=== PATIENT | male | born 1950 | race Caucasian/White ===

== ENCOUNTER 2020-02-29 02:14 | Outpatient (CLI) | payer MEDICARE, SELFPAY ==
[2020-02-29 18:25] LABS: SARS-CoV-2 RNA PCR Negative
== END 2020-02-29 02:15 | disposition home or self-care (01) ==
LOC: ANHCOVIDDT 02:14
PROVIDERS: PCP Internal Medicine; Visit Provider Internal Medicine Gastroenterology
DX: Z01.812 Encounter for preprocedural laboratory examination (principal); Z20.828 Contact with and (suspected) exposure to other viral communicable diseases
CPT/HCPCS: 87635; C9803; U0003

== ENCOUNTER 2020-03-03 01:42 | Day surgery (SDC) | payer MEDICARE, SELFPAY ==
[2020-02-25 15:07] VITALS: BMI 31.6
[2020-03-03 07:16] LABS: Glucose Point of Care 117 (65-105)
[2020-03-03] MEDS: LACTATED RINGERS 1,000 ML 150 ML IV CONT (07:18)
[2020-03-03 07:25] VITALS: BP 149/95; PULSE 64; RESP 16; TEMP 36.8; O2SAT 99
--- NOTE | 2020-03-03 07:55 | P.PNAN_ITS ---
Anes - Initial Pre Proc Eval Procedure: Operation Date: 03/03/20 08:00 Proposed Procedures p Screening Colonoscopy - Ankush Nath MD Date/Time: 03/03/20 07:55 Surgeon: Ankush Nath MD Pre Op Diagnosis: hx of colon polyps Patient Data Age: 69 Gender: M Height: 5 ft 10 in Weight: 104.5 kg Last Vital Signs Temp 98.3 F 03/03/20 07:25 Pulse 64 03/03/20 07:25 Resp 16 03/03/20 07:25 BP 149/95 H 03/03/20 07:25 Pulse Ox 99 03/03/20 07:25 Allergies Allergy/AdvReac Type Severity Reaction Status Date / Time No Known Allergies Allergy Verified 03/03/20 07:20 Home Medications Medication Instructions Recorded Confirmed Type allopurinol 300 mg PO DAILY 03/03/20 03/03/20 History amlodipine 5 mg PO DAILY 03/03/20 03/03/20 History atorvastatin 40 mg PO DAILY 03/03/20 03/03/20 History glimepiride 4 mg PO DAILY 03/03/20 03/03/20 History losartan 100 mg PO DAILY 03/03/20 03/03/20 History metformin 500 mg PO DAILY 03/03/20 03/03/20 History metoprolol tartrate 12.5 mg PO BID 03/03/20 03/03/20 History pantoprazole 40 mg PO DAILY 03/03/20 03/03/20 History Laboratory Tests 03/03/20 07:13 POC Capillary Glucose 117 mg/dl H mg/dl (65-105) Patient hx anesthesia problems: none Family hx anesthesia problems: none [facility] Past Medical History Medical History (Updated 03/03/20 @ 07:52 by Hector Sanchez MD) CAD (coronary artery disease) Diabetes Hyperlipidemia Hypertension Surgical History Surgical History (Updated 03/03/20 @ 07:52 by Hector Sanchez MD) Stented coronary artery Family History Family History Mother Hypertension Family history of malignant neoplasm Father Family history of cardiovascular disease Sibling Family history of malignant neoplasm Social History Social History Smoking status: Former smoker Tobacco type: cigarettes Smoking end date: 05/16/79 Alcohol intake: never Substance use: never Substance use type: does not use Last use: 1979 Living arrangements: with family Spiritual care concerns: No Anes - Eval Final PreProcedure Day of Procedure 03/03/20 07:55 Patient weight: obese Heart: regular rate and rhythm Lungs: clear to auscultation Airway: Mallampati scale class III Neurological: alert and oriented Last oral intake: >/= 8 hours ASA classification: III Emergent: no Anesthetic plan: proceed Anesthesia type and monitoring: general GIVS and standard monitoring Informed Consent: The patient's anesthetic plan and its attendant risks and benefits were discussed with the patient/family/POA. Questions were solicited and answers provided to the satisfaction of the patient/family/POA.
--- NOTE | 2020-03-03 08:04 | WPDGICN ---
Assessment and Plan Assessment and plan (1) History of colon polyps: Code(s): Z86.010 - Personal history of colonic polyps Status: Acute Assessment and Plan: Patient reports a history of colon polyps elsewhere 10 years ago. Plan is for surveillance colonoscopy at this time. High-fiber diet advised. Further recommendations will be given after endoscopy. GI Consult Note Consult date/time: 03/03/20 08:04 HPI: Daron Soares is a 69 year old male Seen in evaluation at the request of Dr. Calixto Almanza. Patient presents for follow-up colonoscopy. Patient reports having had a colon polyp on previous exam more than 10 years ago. She has he states that his current weight appetite bowel movements are normal. Previously followed by Dr. Dodson. Patient denies any blood in his stools. He denies abdominal pain. His bowel habits are normal. Review of Systems Review of Systems: All systems reviewed & are unremarkable except as noted in HPI and below PMFSH Past Medical History Medical History (Updated 03/03/20 @ 08:06 by Ankush Nath MD) CAD (coronary artery disease) Diabetes Hyperlipidemia Hypertension Surgical History Surgical History (Updated 03/03/20 @ 07:52 by Hector Sanchez MD) Stented coronary artery Family History Family History Mother Hypertension Family history of malignant neoplasm Father Family history of cardiovascular disease Sibling Family history of malignant neoplasm Social History Social History Smoking status: Former smoker Tobacco type: cigarettes Smoking end date: 05/16/79 Alcohol intake: never Substance use: never Substance use type: does not use Last use: 1979 Living arrangements: with family Spiritual care concerns: No Meds Home Medications and Allergies Home Medications Medication Instructions Recorded Confirmed Type allopurinol 300 mg PO DAILY 03/03/20 03/03/20 History amlodipine 5 mg PO DAILY 03/03/20 03/03/20 History atorvastatin 40 mg PO DAILY 03/03/20 03/03/20 History glimepiride 4 mg PO DAILY 03/03/20 03/03/20 History losartan 100 mg PO DAILY 03/03/20 03/03/20 History metformin 500 mg PO DAILY 03/03/20 03/03/20 History metoprolol tartrate 12.5 mg PO BID 03/03/20 03/03/20 History pantoprazole 40 mg PO DAILY 03/03/20 03/03/20 History Allergies Allergy/AdvReac Type Severity Reaction Status Date / Time No Known Allergies Allergy Verified 03/03/20 07:20 Vital Signs Vital Signs - 24 hr 03/03/20 07:25 Temperature 98.3 F Pulse Rate 64 Respiratory Rate 16 Blood Pressure 149/95 H Pulse Oximetry 99 Exam Narrative: Exam Narrative: physical exam reveals patient to be alert. Vital signs stable. HEENT exam unremarkable. Patient is alert. Vital signs stable. Lungs are clear. Heart without murmur. Abdomen bowel sounds are present soft nontender with no organomegaly. Digital external rectal exam is normal.
[2020-03-03 08:37] VITALS: BP 112/64; PULSE 65; RESP 18; O2SAT 96
[2020-03-03 08:47] VITALS: BP 116/68; PULSE 63; RESP 18; O2SAT 96
[2020-03-03 08:57] VITALS: BP 123/78; PULSE 60; RESP 20; O2SAT 98
== END 2020-03-03 09:18 | disposition home or self-care (01) ==
PROVIDERS: PCP Internal Medicine; Visit Provider Internal Medicine Gastroenterology
PROC: 0DJD8ZZ Inspection of Lower Intestinal Tract, Via Natural or Artificial Opening Endoscopic (ICD-10-PCS; CPT 45378; principal; 2020-03-03 08:00)
DX: Z12.11 Encounter for screening for malignant neoplasm of colon (principal); D12.3 Benign neoplasm of transverse colon; D12.5 Benign neoplasm of sigmoid colon; K57.30 Diverticulosis of large intestine without perforation or abscess without bleeding; K64.8 Other hemorrhoids; I10 Essential (primary) hypertension; E11.9 Type 2 diabetes mellitus without complications; I25.10 Atherosclerotic heart disease of native coronary artery without angina pectoris; Z95.5 Presence of coronary angioplasty implant and graft; Z87.891 Personal history of nicotine dependence; Z79.84 Long term (current) use of oral hypoglycemic drugs; E66.9 Obesity, unspecified; Z68.33 Body mass index [BMI] 33.0-33.9, adult
CPT/HCPCS: 45385; 88305; J2704; J7120

== ENCOUNTER 2023-02-15 07:37 | Outpatient (CLI) | payer MEDICARE, SELFPAY ==
--- NOTE | ~2023-02-15 | CT_ITS ---
CT Scan of the Chest without Contrast: Clinical Indication: Lung cancer screening, personal history of nicotine dependence Technique: Contiguous sections were acquired throughout the chest without intravenous contrast. Dose reduction technique was used on this scan by utilizing automated exposure control and iterative recon struction technique. The dose-length product (DLP) was 178.25 mGy-cm. Findings: There is no evidence of any significant mediastinal, hilar or axillary lymphadenopathy. Coronary kirstin ry calcifications are present. There is no evidence of pleural or pericardial effusion. Calcified right upper lobe granuloma noted. No other pulmonary nodule seen. Images through the upper abdomen reveal probable micronodular contour of liver. Impression: Lung RADS 2: Benign appearance. 12 month follow-up screening CT advised. Reviewed, dictated and finalized at location . Impression: Lung RADS 2: Benign appearance. 12 month follow-up screening CT advised.
== END 2023-02-15 07:38 | disposition home or self-care (01) ==
PROVIDERS: PCP Family Medicine; Visit Provider Family Medicine
DX: Z12.2 Encounter for screening for malignant neoplasm of respiratory organs (principal); Z87.891 Personal history of nicotine dependence
CPT/HCPCS: 71271

== ENCOUNTER 2023-02-25 10:48 | Outpatient (CLI) | payer MEDICARE, SELFPAY ==
--- NOTE | ~2023-02-25 | US_ITS ---
Limited Abdominal Sonogram: Real-time sonographic imaging of the right upper quadrant was performed. Clinical History: Elevated liver enzymes Findings: The liver appears mildly echogenic, with no evidence of mass lesion or bile duct dilatatio n. Questionable minimally nodular contour of liver. Main portal vein demonstrates normal direction of flow. The gallbladder is absent, compatible with prior cholecystectomy. The common bile duct measure s 3 mm. The pancreas is obscured by bowel gas shadowing. Impression: Probable diffuse fatty infiltration of liver. Questionable minimal nodularity liver contour of the liver. Correlate for early cirrhotic change. Reviewed, dictated and finalized at location . Impression: Probable diffuse fatty infiltration of liver. Questionable minimal nodularity liver contour of the liver. Correlate for early cirrhotic change.
== END 2023-02-25 10:49 | disposition home or self-care (01) ==
PROVIDERS: PCP Family Medicine; Visit Provider Family Medicine
DX: R74.8 Abnormal levels of other serum enzymes (principal)
CPT/HCPCS: 76705

== ENCOUNTER 2023-04-11 08:26 | Outpatient (RCR) | payer MEDICARE, SELFPAY ==
--- NOTE | 2023-04-11 09:25 | PTOPEVDC ---
Assessment and note entered by Candy Velasquez, PT Thank you for referring Daron Soares to [facility].? An evaluation has been completed. No further treatment is needed. Evaluation Information Assessment Status Evaluation Diagnosis spondylosis w/out myelopathy or radiculopathy; cervical Subjective Information Pt reports 10 years ago neck started being bothersome especially on right side. Saw a doctor that taught him a stretch that fixes the issues. Came back 3 weeks ago and did the x-ray, shows arthritis, and hasn't had pain since. Pt reports only does the stretches when has the pain and this has worked but hasn't prophylacticly Used to hurt all the time in the morning with waking but is better. Usually only happens once or twice a month, this time was increasing to daily multiple times a day when went to the doctor and now is fine. Reported Pain Level Pain Score 0: Self Report Assessment PT Clinical Summary Pt presents with history of relapsing intermittent pain in right side of his neck and shoulder area. Pt currently has no pain, reports has a stretch that a doctor gave him previously that works to resolve the pain. While evaluation shows some mild to moderate deficits in cervical ROM and posture, pt also has no pain currently, tenderness to palpation, or overt abnormalities of soft tissue. Most significant deficit noted in shoulder ROM however currently is painless and functional for patient. Patient was educated in findings of evaluation, encouraged to perform his stretches daily as preventative measures for flare ups, and educated on return to therapy if pain is not able to be managed independently in the future. Thus patient will not be seen for therapy at this time due to patient request and currently being baseline for the last three weeks. Plan of Care PT Services Indicated No
== END 2023-04-11 09:40 | disposition home or self-care (01) ==
LOC: ANHHIPT 08:26
PROVIDERS: PCP Family Medicine; Visit Provider Family Medicine
DX: M47.812 Spondylosis without myelopathy or radiculopathy, cervical region (principal)
CPT/HCPCS: 97161

== ENCOUNTER 2023-06-04 16:54 | Inpatient (IN) | payer MEDICARE, SELFPAY ==
--- NOTE | ~2023-06-04 | CT_ITS ---
EXAMINATION: CT abdomen pelvis wo/w con DATE: 06/04/2023 22:14 INDICATION: Recurrent urinary tract infections. Concern for fistula. TECHNIQUE: Computed tomography (CT) of the abdomen and pelvis was performed with 100 CC Omnipaque 350 intravenous contrast. Automated exposure control and iterative reconstruction technique were employe d. Exam dose: 5424.87 mGy-cm total exam DLP. COMPARISON: 02/25/2023 Limited abdominal ultrasound examination FINDINGS: No consolidation at the lung bases. Normal heart size. Prominent coronary artery calcificat ions. No pericardial or pleural effusion. There is minimal ascites. Small sliding hiatal hernia. There is surface nodularity of the liver consistent with cirrhosis and mild splenomegaly; spleen bita ures approximately 14.9 cm maximum vertical dimension. Status post cholecystectomy. No bile duct or pancreatic duct dilatation. No pancreatic mass lesion or calcification. Normal morphology of the adrenal glands. Approximately 1 cm posterior upper pole left renal exophytic cyst. No urinary tract calculus or hydro ureteronephrosis. There is prominent thickening of the urinary bladder wall. There is gas within the bladder lumen; dif ferential diagnosis includes iatrogenic air from instrumentation such as Godfrey catheter placement ramiro hayes fistula with the colon due to diverticulitis or possibly secondary to bladder mass. There is an approximately 2 cm soft tissue mass in the anterior aspect of the urinary bladder, suspic ious for urothelial malignancy.. Moderate prostatomegaly. Small bilateral fat-containing inguinal hernias. Normal appendix. There is diverticulosis of left and right colon, the diverticula particularly numerous in the sigmoid and descending colon. There is mild fat stranding in the sigmoid colon area; mild diverticulitis is not excluded. Given the presence of air in the urinary bladder, fistula between the sigmoid colon and urinary bladder is not excluded. Small fat-containing umbilical hernia. Diffuse idiopathic skeletal hyperostosis of the thoracic spine. IMPRESSION: Air within the bladder lumen which may be due to instrumentation versus fistula with the sigmoid colon due to either sigmoid diverticulitis or bladder neoplasm Diverticulosis of the colon; mild diverticulitis is not excluded in the sigmoid area Cirrhosis, mild splenomegaly, minimal ascites Small sliding hiatal hernia Normal appendix 1 cm left renal cyst Reviewed, dictated and finalized at [facility]. Reviewed, dictated and finalized at location [facility]. ON MANIFEST CLERK IMPRESSION: Air within the bladder lumen which may be due to instrumentation v ersus fistula with the sigmoid colon due to either sigmoid diverticulitis or bl adder neoplasm Diverticulosis of the colon; mild diverticulitis is not excluded in the sigmoid area Cirrhosis, mild splenomegaly, minimal ascites Small sliding hiatal hernia Normal appendix 1 cm left renal cyst
--- NOTE | ~2023-06-04 | US_ITS ---
EXAMINATION: US abdomen limited DATE: 06/06/2023 08:34 INDICATION: Elevated liver enzymes with concern for cirrhosis TECHNIQUE: Multiple grayscale and Doppler ultrasound images of the abdomen were obtained. COMPARISON: CT dated 06/04/2023 and ultrasound dated 02/25/2023 FINDINGS: The pancreatic head and body are normal in appearance. The pancreatic tail is not visualized. Liver has normal echogenicity with subtle liver surface nodularity consistent with cirrhosis. No liver lesi on identified. No intrahepatic biliary duct dilation suspected. Portal venous flow was seen in the he patopetal, normal direction and has normal Doppler waveform. Gallbladder is surgically absent. The ga llbladder measures 5 mm in maximal diameter which is normal. The visualized inferior vena cava is nor mal. Visualized portion of the right kidney demonstrates normal contour and echogenicity with no hydr onephrosis. There is a minimal amount of perihepatic ascites. IMPRESSION: 1. Cirrhosis with minimal amount of perihepatic ascites. 2. Status post cholecystectomy. Reviewed, dictated and finalized at location A. ETRICS NURSE
[2023-06-04 17:01] VITALS: BP 171/94; PULSE 88; RESP 19; TEMP 36.1; O2SAT 100
[2023-06-04 18:22] LABS: Appearance Urine Cloudy (Clear); Bacteria Urine 1+ /hpf; Bilirubin Urine 1+ (Negative); Blood Urine 2+ (Negative); Color Urine Dark Yellow (Yellow); Glucose Urine UA Negative (Negative); Ketones Urine Trace mg/dL (Negative); Leukocyte Esterase Ur 2+ LEU/UL (Negative); Need Manual Microscopic Reviewed; Nitrate Urine Positive (Negative); Protein Urine 2+ mg/dL (Negative); Specific Grav Ur 1.025 (1.001-1.035); Squamous Epithelial Cell Urine None seen /hpf (Few); WBC Urine >100 /hpf
[2023-06-04 18:23] LABS: Add Urine Microscopic? YES
[2023-06-04 19:19] LABS: Glucose Point of Care 129 mg/dl (65-105)
--- NOTE | 2023-06-04 20:07 | ED.MALEGU ---
HPI - Male Genitourinary General Chief complaint: Urogenital-Male <Krista Sanches MD - Last Filed: 06/05/23 11:07> Stated complaint: urinary frequency <Krista Sanches MD - Last Filed: 06/05/23 11:07> Time Seen by Provider: 06/04/23 20:07 <Krista Sanches MD - Last Filed: 06/05/23 11:07> History of Present Illness HPI Narrative: Patient is a 72 year old male with history of recurrent urinary tract infections, follows with Dr. Carmona, here with dysuria. Patient notes he had dysuria and increased urinary frequency for the last 3-4 days. Patient notes he feels the need to void constantly, urinating several times an hour, only urinating about a shot glass worth of urine at a time. He notes some burning pain at the tip of his penis with urination. He went to see Dr. Carmona a few days ago, had a urinalysis performed and was diagnosed with a UTI, started on ciprofloxacin. He has taken about 3 days worth of this antibiotic without any improvement of symptoms. He has had night sweats the last 2 nights, no fever, abdominal pain, flank pain, cough, congestion. Dr. Carmona had ordered an outpatient CT with and without contrast which is currently scheduled for Tuesday however he is worried that he cannot make it until them. He had an episode of diverticulitis about 8 months ago, notes that he has had some gas when he urinates for several months, Dr. Carmona is concerned he may have a colovesicular fistula. <Krista Sanches MD - Last Filed: 06/05/23 11:07> Related Data Home medications: Home Medications Medication Instructions Recorded Confirmed amlodipine 5 mg tablet 5 mg PO DAILY 03/03/20 06/05/23 atorvastatin 40 mg tablet 40 mg PO DAILY 03/03/20 06/05/23 losartan 100 mg tablet 100 mg PO DAILY 03/03/20 06/05/23 metoprolol tartrate 25 mg tablet 12.5 mg PO BID 03/03/20 06/05/23 aspirin 81 mg tablet,delayed 81 mg PO DAILY 03/11/22 06/05/23 release (Adult Low Dose Aspirin) nitroglycerin 0.4 mg sublingual 0.4 mg sublingual Q5M PRN Chest 10/27/22 01/21/24 tablet Pain allopurinol 100 mg tablet 100 mg PO DAILY 06/05/23 06/05/23 pantoprazole 40 mg tablet,delayed 40 mg PO DAILY 06/05/23 06/05/23 release sitagliptin phosphate 100 mg 50 mg DAILY 06/05/23 06/05/23 tablet (Januvia) tamsulosin 0.4 mg capsule 0.4 mg DAILY 06/05/23 06/05/23 <Krista Sanches MD - Last Filed: 06/05/23 11:07> Allergies/Adverse reactions: Allergies Allergy/AdvReac Type Severity Reaction Status Date / Time dapagliflozin [From Farxiga] AdvReac Intermediate increased Verified 06/04/23 20:36 urination semaglutide [From Ozempic] AdvReac Gastrointestinal Verified 06/04/23 20:36 Upset <Krista Sanches MD - Last Filed: 06/05/23 11:07> Review of Systems Review of Systems: All systems reviewed & are unremarkable except as noted in HPI and below <Krista Sanches MD - Last Filed: 06/05/23 11:07> PMFSH Past Medical History Medical History: Medical History (Updated 06/05/23 @ 11:06 by Krista Sanches MD) Acute medial meniscus tear of right knee CAD (coronary artery disease) Vfib with cardiac arrest at time of [place], PCI RCA May 2021 Cervical arthritis Chronic kidney disease Chronic pain of right knee Diabetes Elevated liver enzymes Encounter for screening for malignant neoplasm of prostate Hyperlipidemia Hypertension Penile anomalies Prostatitis Rotator cuff arthropathy Tear of right rotator cuff Trigger finger, right middle finger Trigger thumb, left thumb Trigger thumb, right thumb Type 2 diabetes mellitus with complication UTI (urinary tract infection) <Krista Sanches MD - Last Filed: 06/05/23 11:07> Surgical History Surgical History: Surgical History (Reviewed 03/24/23 @ 10:[address] Castaneda [facility]) H/O colonoscopy 02/2020 repeat 5 years History of heart artery stent Hx of cholecystectomy Stented coronary artery <Krista Sanches MD - Last Filed: 06/05/23 11:07> Family History Family History: Family History
[2023-06-04 20:46] LABS: Basophils Percent Auto 0.5 % (0.2-1.2); Eosinophils Percent Auto 0.5 % (0-4.4); Hemoglobin 11.1 g/dL (14.0-18.0); Immature Granulocyte Absolute 0.02 K/mm3 (0.00-0.031); Immature Granulocyte Percent A 0.3 % (0-0.5); Lymphocytes Absolute Auto 0.36 K/mm3 (0.9-3.2); Lymphocytes Percent Auto 5.6 % (18.3-44.2); Mean Corpuscular HGB Conc 30.8 g/dl (32-36); Mean Corpuscular Hemoglobin 26.2 pg (26-34); Mean Corpuscular Volume 84.9 fl (80-100); Mean Platelet Volume 10.2 fl (7.4-10.4); Monocytes Absolute Auto 0.7 K/mm3 (0.1-0.6); Monocytes Percent Auto 10.9 % (2.6-8.5); Neutrophils Absolute Auto 5.3 K/mm3 (1.3-6.7); Neutrophils Percent Auto 82.2 % (45.5-73.1); Platelet Count Result 168 k/mm3 (150-375); Red Blood Count 4.24 M/mm3 (4.6-6.20); Red Cell Distribution Width 16.2 % (11.5-14.5); White Blood Count 6.4 K/mm3 (4.5-10.0)
[2023-06-04 21:03] LABS: Alanine Aminotransferase 43 U/L (6-50); Albumin Level 3.7 g/dL (3.5-5.1); Alkaline Phosphatase 482 U/L (38-126); Anion Gap 8 mmol/L (8-16); Aspartate Amino Transferase 84 U/L (17-59); Bilirubin,Total 1.5 mg/dL (0.2-1.3); Blood Urea Nitrogen 27 mg/dL (9-20); Calcium 8.6 mg/dL (8.4-10.2); Carbon Dioxide 22 mmol/L (22-30); Chloride 105 mmol/L (98-107); Estimated CRCL calculation 43 ml/min; Estimated Glomerular Filt Rate 43; Glucose 135 mg/dL (65-110); Sodium 135 mmol/L (137-145)
--- NOTE | 2023-06-04 22:29 | PC.NURSE ---
2228-BEDSIDE BLOOD GLUCOSE 134
[2023-06-04 22:30] LABS: Glucose Point of Care 134 mg/dl (65-105)
[2023-06-04 23:00] VITALS: PULSE 88; RESP 20; O2SAT 97
[2023-06-05] VITALS (8 sets, daily range): BP systolic 142–163; BP diastolic 72–84; PULSE 78–97; RESP 16–20; TEMP 36.6–36.9; O2SAT 97–100; BMI 29.5
[2023-06-05] MEDS: metroNIDAZOLE 500 MG/ISO 100ML 500 MG/100 ML BAG 100 MG IVPB ×3 (01:44→17:58)
[2023-06-05] MEDS: SODIUM CHLORIDE 0.9% IV 1,000 ML 125 ML IV CONT ×3 (03:21→20:41)
--- NOTE | 2023-06-05 03:52 | ADMGEN ---
This patient, Daron Soares, was admitted to Medical Room 343-01. Patient/family oriented to hospital policies and general routines including ID bracelet, bed and alarms, visiting hours, pain management, procedures, bathroom and other care routines, personal items, smoking policy, room service/diet, and visiting hours. Information on how to activate the Rapid Response Team has been discussed. Patient/Family are encouraged to report perceived risks to care and to ask questions if they do not understand what they are told or what they should do.
[2023-06-05] MEDS: PANTOPRAZOLE 40 MG TABLET PO (09:31)
[2023-06-05] MEDS: METOPROLOL TARTRATE 12.5 MG TABLET PO ×2 (09:31→20:35)
[2023-06-05 09:32] LABS: Glucose Point of Care 157 mg/dl (65-105)
[2023-06-05] MEDS: ASPIRIN 81 MG ENTERIC TABLET PO (09:32)
[2023-06-05] MEDS: LOSARTAN POTASSIUM 100 MG TABLET PO (09:32)
--- NOTE | 2023-06-05 11:50 | WPDURCON ---
Assessment and Plan Assessment and plan (1) Diverticulitis: Code(s): K57.92 - Diverticulitis of intestine, part unspecified, without perforation or abscess without bleeding Status: Acute Assessment and Plan: Most likely cause of Colovesicular fistula GI and surgical evaluation and consult requested. (2) Urinary tract infection: Qualifiers: Hematuria presence: with hematuria Urinary tract infection type: acute cystitis Qualified Code(s): N30.01 - Acute cystitis with hematuria Code(s): N39.0 - Urinary tract infection, site not specified Status: Acute Assessment and Plan: cult pending, current and from office last week Cefriaxone and Flagyl (3) Urinary frequency: Code(s): R35.0 - Frequency of micturition Status: Acute Assessment and Plan: ulloa if retention symptoms (4) Dysuria: Code(s): R30.0 - Dysuria Status: Acute Assessment and Plan: from UTI and treating (5) BPH (benign prostatic hyperplasia): Code(s): N40.0 - Benign prostatic hyperplasia without lower urinary tract symptoms Status: Acute Assessment and Plan: start tamsulosin PVR low in office (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 Worsening dysuria and frequncy and admitted from ER with signs of colovesicular fistula. His CT with diverticulosis and thickened bladder. No obvious tumor. Past episodes of diverticulitis. Cipro did not help symptoms. Thinks last colonoscopy 2-3 years ago. He has not had cystoscopy. Reports PSA normal in past. Large prostate on CT. PVR in office low on bladder scan. No current prostate medication. Review of Systems Gastrointestinal: Comments: no recent pain some loose stools no blood in stool PMFSH Past Medical History Medical History (Updated 06/05/23 @ 12:09 by Jeremi Floyd MD) Acute medial meniscus tear of right knee CAD (coronary artery disease) Vfib with cardiac arrest at time of [place], PCI RCA May 2021 Cervical arthritis Chronic kidney disease Chronic pain of right knee Diabetes Elevated liver enzymes Encounter for screening for malignant neoplasm of prostate Hyperlipidemia (~06/05/23) Hypertension Penile anomalies Prostatitis Rotator cuff arthropathy Tear of right rotator cuff Trigger finger, right middle finger Trigger thumb, left thumb Trigger thumb, right thumb Type 2 diabetes mellitus with complication UTI (urinary tract infection) Surgical History Surgical History H/O colonoscopy 02/2020 repeat 5 years History of heart artery stent Hx of cholecystectomy Stented coronary artery Family History Family History Mother Hypertension Family history of malignant neoplasm Father Family history of cardiovascular disease Sibling Family history of malignant neoplasm Social History Social History Smoking status: Former smoker Alcohol intake: never Substance use: never Substance use type: does not use Last use: 1980 Do You Feel Safe in your Home?: Yes Lack of Transportation: No Lack of Food: Never True Current Housing: I Have Housing Concerned About Future Housing: No Difficulty Paying Gas/Electric Bills: No Difficulty Paying for Meds: No Currently Unemployed: No Education: High School Diploma/GED Difficulty w/ Childcare or
[2023-06-05 12:32] LABS: Glucose Point of Care 185 mg/dl (65-105)
--- NOTE | 2023-06-05 12:45 | PM.IMHP ---
H&P: HPI History of Present Illness Date/Time: 06/05/23 12:45 Chief Complaint: Urinary frequency, dysuria Narrative: This is a 72-year-old male with a past medical history of diabetes, hypertension, hyperlipidemia, and VT with stent placement that presented to the ED on 06/04/2023 due to worsening urinary frequency and dysuria. Patient had recently been seen in Urology office due to the symptoms and was put on ciprofloxacin. When he did not improve on this antibiotic and was evaluated in the ED due to this. He had a outpatient CT planned for this coming Tuesday due to his symptoms. CT abdomen pelvis done in the ED showing bladder wall thickening, poss facial of the colon due to diverticulitis versus bladder mass. Patient was admitted neurology was consulted. UA was suspicious for infection he was started on Rocephin. Flagyl was added on to antibiotic therapy due to imaging consistent with diverticulitis. Patient denied diarrhea And abdominal pain. He did mention a fever yesterday with temperature of 101.8?. He denied any hematuria, melena or hematochezia. [facility] Past Medical History Medical History Acute medial meniscus tear of right knee CAD (coronary artery disease) Vfib with cardiac arrest at time of [place], PCI RCA May 2021 Cervical arthritis Chronic kidney disease Chronic pain of right knee Diabetes Elevated liver enzymes Encounter for screening for malignant neoplasm of prostate Hyperlipidemia (~06/05/23) Hypertension Penile anomalies Prostatitis Rotator cuff arthropathy Tear of right rotator cuff Trigger finger, right middle finger Trigger thumb, left thumb Trigger thumb, right thumb Type 2 diabetes mellitus with complication UTI (urinary tract infection) Surgical History Surgical History H/O colonoscopy 02/2020 repeat 5 years History of heart artery stent Hx of cholecystectomy Stented coronary artery Family History Family History Mother Hypertension Family history of malignant neoplasm Father Family history of cardiovascular disease Sibling Family history of malignant neoplasm Social History Social History Smoking status: Former smoker Alcohol intake: never Substance use: never Substance use type: does not use Last use: 1980 Do You Feel Safe in your Home?: Yes Lack of Transportation: No Lack of Food: Never True Current Housing: I Have Housing Concerned About Future Housing: No Difficulty Paying Gas/Electric Bills: No Difficulty Paying for Meds: No Currently Unemployed: No Education: High School Diploma/GED Difficulty w/ Childcare or Family Care: No Living arrangements: with family Occupation/Education: retired Gender identity (if verbalized by the patient): Male Sexual Orientation (if Verbalized by the Patient): Straight or Heterosexual Spiritual care concerns: No Meds Home Medications and Allergies Home Medications Medication Instructions Recorded Confirmed Type amlodipine 5 mg tablet 5 mg PO DAILY 03/03/20 06/05/23 History atorvastatin 40 mg tablet 40 mg PO DAILY 03/03/20 06/05/23 History losartan 100 mg tablet 100 mg PO DAILY 03/03/20 06/05/23 History metoprolol tartrate 25 mg tablet 12.5 mg PO BID 03/03/20 06/05/23 History aspirin 81 mg tablet,delayed 81 mg PO DAILY 03/11/22 06/05/23 History release (Adult Low Dose Aspirin) nitroglycerin 0.4 mg sublingual 0.4 mg sublingual Q5M PRN Chest 03/11/22 06/05/23 History tablet Pain cyclobenzaprine 5 mg tablet 5 mg PO TID PRN muscle spasm #30 07/23/22 06/05/23 Rx tabs tramadol 50 mg tablet 50 mg PO Q6H PRN pain #30 tabs 07/23/22 06/05/23 Rx ciprofloxacin HCl 500 mg tablet 500 mg PO Q12H #20 tabs 03/24/23 06/05/23 Rx metformin 500 mg 24 hr 1,000 mg PO BID 90 days #360 tab
--- NOTE | 2023-06-05 17:06 | WPDCN ---
Assessment and Plan Assessment and plan (1) Cirrhosis: Code(s): K74.60 - Unspecified cirrhosis of liver Status: Acute Assessment and Plan: Patient may have some mild cirrhosis due to nonalcoholic steatohepatitis. Liver enzymes are only mildly elevated and there is some mild changes of scarring of the liver CT scan. Will need to assess the degree of liver disease before recommending any specific surgical management for his colovesical fistula. 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 His history of having sigmoid diverticulitis in the past and CT findings are very suggestive of having a colovesical fistula as a reason for his chronic UTIs. Urology has seen him and I suspect Dr. Carmona will likely perform his cystoscopy on this patient during this admission. Either a cystogram or lower GI contrast study would likely show the colovesical fistula. We will see with Dr. Lamar case is going to do diagnostically and if urology workup does not show the colovesical fistula that I would recommend getting a lower GI imaging study. GI consultation has been ordered as well by the urologist and so patient may also end up getting a colonoscopy depending on GI recommendations. For now he does not need any emergent surgical management. (3) Diverticulitis: Code(s): K57.92 - Diverticulitis of intestine, part unspecified, without perforation or abscess without bleeding Status: Acute Assessment and Plan: Likely causing a Colovesical fistula dome of the bladder. Treatment would entail takedown of the colovesical fistula and sigmoid resection and hopefully primary anastomosis. HPI Data of Consult Date/Time: 06/05/23 17:06 Requesting Physician: Mar Steele DO Primary Care Provider: Vj Mendez MD Consult Narrative Reason for consult: Colovesical fistula Narrative: Daron Soares is a 72 year old male who was admitted to the hospital with symptoms of severe recurrent UTI. Complains of burning with urination and urinary frequency. He has a large prostate and was seen by Dr. Carmona in the office last week. He was diagnosed with a UTI placed on Cipro. The plan was to perform a cystoscopy this coming week but the patient was having too much pain and urinary frequency and presented to the emergency room. He was seen by Dr. Floyd from the Urology Service and both GI and General surgery was consulted because of the likelihood that the patient has a colovesical fistula. The patient has a history of acute sigmoid diverticulitis. A few years ago had his gallbladder removed laparoscopically at another hospital and in the postoperative period he developed acute sigmoid diverticulitis. He did not need surgical intervention at that time. He had a colonoscopy performed about 2 years ago showed no polyps or masses. His CT scan today shows pretty severe diverticulosis of the sigmoid colon and 1 images sigmoid colon approximated to the dome of the bladder with thickening the area and there is air within the bladder. Patient had a previous sigmoid colon surgery in the past. Images on CT scan the liver showed there to be some irregularity to the surface of the liver suggestive of some cirrhotic changes. Patient has had some mildly chronically elevated LFTs in the past but has never had the symptoms from possible cirrhosis and has never been referred to see a apartment leasing consultant. Review of Systems Review of Systems: The remainder of the review of systems to include constitutional, HEENT, cardiovascular, respiratory, GI, , integumentary, musculoskeletal, endocrine, immunologic, hematologic, psychiatric, and neurologic are all negative except for which is mentioned above in the HPI. [facility] Past Medical History Medical History (Reviewed 06/05/23 @ 17:11 by Rommel Gutierrez
[2023-06-05 17:19] LABS: Glucose Point of Care 176 mg/dl (65-105)
[2023-06-05] MEDS: amLODIPine BESYLATE 5 MG TABLET PO (20:36)
[2023-06-05] MEDS: TAMSULOSIN HCL 0.4 MG CAPSULE BY MOUTH (20:36)
[2023-06-05] MEDS: ATORVASTATIN 40 MG TABLET PO (20:36)
[2023-06-05 20:56] LABS: Glucose Point of Care 173 mg/dl (65-105)
[2023-06-06] VITALS (9 sets, daily range): BP systolic 136–159; BP diastolic 67–91; PULSE 75–98; RESP 12–20; TEMP 36.5–37.2; O2SAT 97–100
[2023-06-06] MEDS: metroNIDAZOLE 500 MG/ISO 100ML 500 MG/100 ML BAG 100 MG IVPB ×3 (01:48→17:22)
[2023-06-06] MEDS: SODIUM CHLORIDE 0.9% IV 1,000 ML 125 ML IV CONT (01:49)
[2023-06-06] MEDS: TAMSULOSIN HCL 0.4 MG CAPSULE PO (08:40)
[2023-06-06] MEDS: METOPROLOL TARTRATE 12.5 MG TABLET PO ×2 (08:40→21:21)
[2023-06-06] MEDS: LOSARTAN POTASSIUM 100 MG TABLET PO (08:40)
[2023-06-06] MEDS: PANTOPRAZOLE 40 MG TABLET PO (08:40)
[2023-06-06] MEDS: ASPIRIN 81 MG ENTERIC TABLET PO (08:40)
--- NOTE | 2023-06-06 09:03 | WPDUROPN2 ---
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 Has been seen by General surgery. I will discuss with Dr. Forbes timing and utility of diagnostic cystoscopy Continue antibiotics for urinary tract infection Subjective Subjective Date/Time Seen: 06/06/23 09:03 Interval history: His frequency is improved with antibiotics. Denies pneumaturia today. CT scan reviewed Exam Narrative: No acute distress Alert orient x3 Objective Data Vital Signs Vital Signs: Vital Signs - 24 hr 06/05/23 09:31 06/05/23 13:19 06/05/23 14:00 Temperature 97.9 F Pulse Rate 85 82 78 Respiratory Rate 20 16 Blood Pressure 149/77 H Pulse Oximetry 99 100 Oxygen Delivery Room Air 06/05/23 12:43 06/05/23 09:31 06/05/23 20:20 Temperature 98.5 F Pulse Rate 85 83 Respiratory Rate 18 Blood Pressure 163/82 H 163/84 H Pulse Oximetry 98 Oxygen Delivery Room Air 06/05/23 20:35 06/06/23 04:32 06/06/23 08:40 Temperature 98.6 F Pulse Rate 86 83 85 Respiratory Rate 16 Blood Pressure 147/78 H Pulse Oximetry 100 Oxygen Delivery Intake/Output Intake/Output: Intake & Output 06/03/23 06/04/23 06/05/23 06/06/23 23:59 23:59 23:59 23:59 Intake Total 50 3150 1450 Balance 50 3150 1450 Meds/Results Medications: Active Medications Generic Name Dose Route Start Last Admin Trade Name Freq PRN Reason Stop Dose Admin Acetaminophen 650 mg 06/05/23 01:27 Acetaminophen 325 Mg Tablet PO Q4H PRN Mild Pain (1-3) or Fever Amlodipine Besylate 5 mg 06/05/23 21:00 06/05/23 20:36 Amlodipine Besylate 5 Mg Tablet PO 5 mg HS BRYCE Administration Aspirin 81 mg 06/05/23 09:00 06/06/23 08:40 Aspirin 81 Mg Enteric Tablet PO 81 mg DAILY BRYCE Administration Atorvastatin Calcium 40 mg 06/05/23 21:00 06/05/23 20:36 Atorvastatin 40 Mg Tablet PO 40 mg HS BRYCE Administration Cyclobenzaprine HCl 5 mg 06/05/23 08:17 Cyclobenzaprine Hcl 5 Mg Tablet PO TID PRN muscle spasm Dextrose 12.5 gm 06/05/23 08:18 Dextrose 50% 25 Gm/50 Ml Syringe IV PUSH PRN PRN Hypoglycemia Protocol Glucagon 1 mg 06/05/23 08:18 Glucagon For Inj 1 Mg Vial IM PRN PRN Hypoglycemia Protocol Glucose 15 gm 06/05/23 08:18 Glucose Oral Gel 15 Gm Of Glucse In 37.5 Gm Tube PO PRN PRN Hypoglycemia Protocol Metronidazole 500 mg in 100 mls @ 100 mls/hr 06/05/23 10:00 06/06/23 02:48 Flagyl 500 Mg/Iso Soln 100 Ml IVPB Infused Q8H BRYCE Infusion Sodium Chloride 1,000 mls @ 125 mls/hr 06/05/23 01:30 06/06/23 01:49 Normal Saline Iv IV CONT 125 mls/hr .Q8H BRYCE Administration Ceftriaxone Sodium 1 gm in 50 mls @ 100 mls/hr 06/05/23 21:00 06/05/23 20:37 Rocephin 1 Gm/Ns 50 Ml IVPB 100 mls/hr Q24H BRYCE Administration Dextrose 1,000 mls @ 100 mls/hr 06/05/23 08:18 Dextrose 5% 1,000 Ml IVPB PRN PRN Hypoglycemia Protocol Insulin Aspart 2 - 5 units 06/05/23 08:30 06/06/23 08:43 Insulin Aspart (*Bkc) 100 Units/Ml SUB-Q Not Given TIDWM BRYCE Protocol Insulin Aspart 1 - 2 units 06/05/23 21:00 06/05/23 20:36 Insulin Aspart (*Bkc) 100 Units/Ml SUB-Q Not Given HS BRYCE Protocol Losartan Potassium 100 mg 06/05/23 09:00 06/06/23 08:40 Losartan Potassium 100 Mg Tablet PO 100 mg DAILY BRYCE Administration Metoprolol Tartrate 12.5 mg 06/05/23 09:00 06/06/23 08:40 Metoprolol
[2023-06-06 09:09] LABS: Glucose Point of Care 123 mg/dl (65-105)
[2023-06-06 09:41] LABS: Hematocrit 31.5 % (42.0-52.0); Hemoglobin 9.7 g/dL (14.0-18.0); Mean Corpuscular HGB Conc 30.8 g/dl (32-36); Mean Corpuscular Hemoglobin 26.1 pg (26-34); Mean Corpuscular Volume 84.9 fl (80-100); Mean Platelet Volume 10.8 fl (7.4-10.4); Platelet Count Result 164 k/mm3 (150-375); Red Blood Count 3.71 M/mm3 (4.6-6.20); Red Cell Distribution Width 16.2 % (11.5-14.5); White Blood Count 4.9 K/mm3 (4.5-10.0)
[2023-06-06 09:49] LABS: Ammonia 16 umol/L (9-30)
[2023-06-06 09:53] LABS: Alanine Aminotransferase 45 U/L (6-50); Alkaline Phosphatase 513 U/L (38-126); Anion Gap 6 mmol/L (8-16); Aspartate Amino Transferase 93 U/L (17-59); Bilirubin,Total 1.3 mg/dL (0.2-1.3); Blood Urea Nitrogen 20 mg/dL (9-20); Carbon Dioxide 21 mmol/L (22-30); Chloride 108 mmol/L (98-107); Estimated CRCL calculation 44 ml/min; Estimated Glomerular Filt Rate 50; Glucose 166 mg/dL (65-110); Potassium 3.6 mmol/L (3.4-5.0); Sodium 135 mmol/L (137-145)
[2023-06-06 09:57] LABS: Alanine Aminotransferase 45 U/L (6-50); Albumin Level 3.1 g/dL (3.5-5.1); Alkaline Phosphatase 528 U/L (38-126); Aspartate Amino Transferase 93 U/L (17-59); Bilirubin,Total 1.3 mg/dL (0.2-1.3); CRP 8.8 mg/dL (<1.0)
[2023-06-06 10:02] LABS: Erythrocyte Sedimentation Rate 131 mm/hr (0-20)
[2023-06-06 10:21] LABS: Iron 35 ug/dL (49-181)
[2023-06-06 10:32] LABS: Percent Iron Saturation 11 % (20-50)
[2023-06-06 10:52] LABS: Hepatitis B Surface Antigen Negative (Negative)
[2023-06-06 10:54] LABS: Thyroid Stimulating Hormone Reflex 0.942 uIU/mL (0.465-4.68)
[2023-06-06 10:58] LABS: HAV RESULT Negative (Negative); Hepatitis B Core IgM Result Negative (Negative)
[2023-06-06 10:59] LABS: Folic Acid 10.7 ng/mL (2.76->20)
[2023-06-06 11:09] LABS: Hepatitis C Virus Antibody Negative (Negative)
[2023-06-06 11:12] LABS: Hepatitis B Surface Anti Res Negative
[2023-06-06 12:26] LABS: Glucose Point of Care 178 mg/dl (65-105)
--- NOTE | 2023-06-06 13:28 | PM.IMPN ---
Progress Note: A&P Assessment and Plan (1) UTI (urinary tract infection): Code(s): N39.0 - Urinary tract infection, site not specified Status: Acute Assessment and Plan: UA with 2+ blood, positive nitrates, 2+ leukocyte esterase, greater than 100 wbc's and +1 bacteria Rocephin started. Urine culture positive for e. coli. Sensitivities pending. Adjust antibiotic therapy to culture results. 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 Urology consulted. GI and general surgery consult ordered. CT also showing a possible bladder tumor. Plan for cystoscopy at some point. (3) Diverticulitis: Code(s): K57.92 - Diverticulitis of intestine, part unspecified, without perforation or abscess without bleeding Status: Acute Assessment and Plan: CT scan of the abdomen pelvis revealing diverticulitis. Patient denies any diarrhea at this time. Flagyl and Rocephin has been started on the patient. (4) Type 2 diabetes mellitus with complication: Code(s): E11.8 - Type 2 diabetes mellitus with unspecified complications Status: Acute Assessment and Plan: Insulin Lispro sliding scale, Accu-checks qAc and HS and Hold oral hypoglycemics Initiate hypoglycemic precautions (5) Hypertension: Code(s): I10 - Essential (primary) hypertension Status: Acute Assessment and Plan: Continue home medications. (6) Hyperlipidemia: Onset Date: ~06/05/23 Code(s): E78.5 - Hyperlipidemia, unspecified Status: Acute Assessment and Plan: Hold statin due to elevated LFTs. (7) Chronic kidney disease: Code(s): N18.9 - Chronic kidney disease, unspecified Status: Acute Assessment and Plan: Patient's BUN and creatinine 27/1.6. Unknown normal. Continue to monitor. (8) Cirrhosis: Code(s): K74.60 - Unspecified cirrhosis of liver Status: Acute Assessment and Plan: CT of the abdomen pelvis showing cirrhosis, mild splenomegaly and minimal ascites. Pt with no hx of cirrhosis. No hx of alcohol abuse. RUQ US showing cirrhosis. Cirrhosis workup ordered. GI also on case. Would suspect that this is cased by fatty liver disease. Subjective Date/time seen: 06/06/23 13:28 Interval history: Patient doing well today. Discussed cirrhosis workup with him. He states that urinary frequency is improved but still has some pain with urination. Awaiting further plans on possible surgery and cystoscopy. Exam Narrative: GENERAL: Comfortable, no acute distress HENMT: moist mucous membranes EYES: EOM intact b/l NECK: no lymphadenopathy RESPIRATORY: distant breath sounds CARDIO: RRR GI: soft, nontender, bowel sounds present, distended SKIN: no rashes EXTREMITIES: no edema, redness or tenderness Objective Data Vital Signs Vital Signs: Vital Signs - 24 hr 06/05/23 14:00 06/05/23 20:20 06/05/23 20:35 Temperature 97.9 F 98.5 F Pulse Rate 78 83 86 Respiratory Rate 16 18 Blood Pressure 149/77 H 163/84 H Pulse Oximetry 100 98 Oxygen Delivery 06/06/23 04:32 06/06/23 08:40 06/06/23 08:40 Temperature 98.6 F Pulse Rate 83 85 Respiratory Rate 16 Blood Pressure 147/78 H Pulse Oximetry 100 Oxygen Delivery Room Air Intake/Output Intake/Output: Intake & Output 06/03/23 06/04/23 06/05/23 06/06/23 23:59 23:59 23:59 23:59 Intake Total 50 3200 2790 Balance 50 3200 2790 Meds/Results Medications: Active Medications Generic Name Dose Route Start Last Admin Trade Name Freq PRN Reason Stop Dose Admin Acetaminophen 650 mg 06/05/23 01:27 Acetaminophen 325 Mg Tablet PO Q4H PRN Mild Pain (1-3) or Fever Amlodipine Besylate 5 mg
--- NOTE | 2023-06-06 13:49 | WPDGICN ---
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 Status: Suspected Assessment and Plan: probably as complication of diverticulitis last colonoscopy 2019 with normal mucosa without worrisome symptoms, he had polyps removed continue with antibiotics and surgery/urology he has new diagnosis of cirrhosis, probably SANDERS (work up in progress) but it is compensated and that won't preclude surgery if indicated I would prefer not to do colonoscopy in setting of possible diverticulitis (2) Cirrhosis: Code(s): K74.60 - Unspecified cirrhosis of liver Status: Acute Assessment and Plan: new diagnosis, compensated no hepatitis, no alcohol probably sanders given several risk factors, pending blood work for other etiologies will need liver imaging every 6 months and follow-up in office (3) Diverticulitis: Code(s): K57.92 - Diverticulitis of intestine, part unspecified, without perforation or abscess without bleeding Status: Acute Assessment and Plan: on treatment (4) Urinary tract infection: Qualifiers: Hematuria presence: with hematuria Urinary tract infection type: acute cystitis Qualified Code(s): N30.01 - Acute cystitis with hematuria Code(s): N39.0 - Urinary tract infection, site not specified Status: Acute Assessment and Plan: on abx, urology on board probably will need cystoscopy (5) BPH (benign prostatic hyperplasia): Code(s): N40.0 - Benign prostatic hyperplasia without lower urinary tract symptoms Status: Acute (6) Dysuria: Code(s): R30.0 - Dysuria Status: Acute (7) Type 2 diabetes mellitus with complication: Code(s): E11.8 - Type 2 diabetes mellitus with unspecified complications Status: Acute (8) Hyperlipidemia: Onset Date: ~06/05/23 Code(s): E78.5 - Hyperlipidemia, unspecified Status: Acute (9) Hypertension: Code(s): I10 - Essential (primary) hypertension Status: Acute GI Consult Note Consult date/time: 06/06/23 13:49 Reason for consult: cirrhosis, uti, possible colovesical fistula and previous diverticulitis HPI: Daron Soares is a 72 year old male with history of diabetes, previous diverticulitis x2 (last colonoscopy 2019 with polyp removed and left sided diverticulosis). He was admitted to hospital after ongoing burning sensation with urination and urinary frequency, he was seen by Dr. Carmona in the office last week, diagnosed with UTI placed on Cipro but pain worsened and finally came to ER.?CT scan showed air within the bladder lumen which may be due to instrumentation versus fistula with the sigmoid colon due to either sigmoid diverticulitis or bladder neoplasm, Diverticulosis of the colon; mild diverticulitis is not excluded in the sigmoid area. Cirrhosis, mild splenomegaly, minimal ascites. He denies history of alcohol abuse, previous liver disease. Transaminases mild elevated with AP, normal platelets, hepatitis negative. Started on abx and seeing by urology and surgery. Review of Systems Constitutional: Constitutional: Reports chills Eyes: Eyes: Denies blurry vision ENT: Reports Normal hearing present Cardiovascular: Cardiovascular: Denies chest pain Respiratory: Respiratory: Denies cough Gastrointestinal: Gastrointestinal: Denies vomiting Genitourinary: Genitourinary: Reports dysuria, Reports urinary frequency and Reports urinary urgency Musculoskeletal: Musculoskeletal: Denies neck pain Integumentary/Breasts: Skin/Breast: Denies dry skin Neurologic: Denies Abnormal speech present Psychiatric: Psychiatric: Denies behavioral changes [facility] Past Medical History Medical History Acute medial meniscus tear of right knee CAD (coronary artery disease) Vfib with cardiac arrest at time of [place], PCI RCA May 2021 Cervical arthritis Chronic
--- NOTE | 2023-06-06 14:07 | PC.NURSE ---
Patient off of unit to surgery
--- NOTE | 2023-06-06 14:36 | WPDHPUPDATE1 ---
History and Physical Update Update Date/Time: 06/06/23 14:36 History and Physical has been reviewed, including an updated exam of the patient. There are NO changes in the patient's condition. Risks, benefits, and alternatives have been discussed and questions answered. Patient agrees to proceed with procedure. Proceed with flexible cystoscopy
[2023-06-06] MEDS: LIDOCAINE HCL 2% GEL UROJET 10 ML PKG MUCOUS MEM (14:47)
--- NOTE | 2023-06-06 15:00 | P.OP_ITS ---
Procedure Note - Detailed Date of Procedure 06/06/23 Pre-op Diagnosis UTI, Diverticulitis Post-op Diagnosis Same (Bladder lesion posterior wall near dome at least 2-3 cm) Procedure Performed Flexible cystoscopy Surgeon Akil Carmona MD Anesthesia Local Description of Procedure Patient is taken the operative suite correctly identified. 2% viscous lidocaine was inserted into the urethra. This was placed after he was prepped and draped usual sterile fashion. Sixteen [place] flexible scope was inserted. There were no urethral strictures. External sphincter is intact. Prostate has some lateral lobe hypertrophy. Upon entering the bladder there is an area along the posterior wall near the dome measuring 2-3 cm that appears like a golf ball. The mucosa is fairly smooth on it. It does not have any papillary fronds. This will require a biopsy and I will see if I can get it scheduled for next Tuesday. I do not see any fistulous communication at this time.. Scope was removed. Estimated Blood Loss 0 Drains No Packing No Pathology None sent Complications No immediate complications Condition Stable Disposition PACU
--- NOTE | 2023-06-06 15:17 | PM.PNGS ---
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 Urology following and planning for cystoscopy today. Will await these results. GI also consulted and wanting to avoid colonoscopy at this time. May need to consider lower GI imaging study depending on cystoscopy results. (2) Cirrhosis: Code(s): K74.60 - Unspecified cirrhosis of liver Status: Acute Assessment and Plan: Will need to assess the degree of liver disease before recommending any specific surgical management for his colovesical fistula. (3) Diverticulitis: Code(s): K57.92 - Diverticulitis of intestine, part unspecified, without perforation or abscess without bleeding Status: Acute Assessment and Plan: Treatment would entail takedown of the colovesical fistula and sigmoid resection and hopefully primary anastomosis. Further workup will be determined following cystoscopy. Subjective Subjective Date/Time Seen: 06/06/23 15:17 Patient reports: no new complaints, tolerating a regular diet and afebrile Interval history: Patient seen today. He still reports having some urinary frequency, but no other specific complaints. Exam Const: General: comfortable and no acute distress Orientation/consciousness: patient oriented x3 GI: Inspection: non-distended GI Palp: Yes Soft to palpation, No Tenderness to palpation present (GI), No Guarding due to palpation present (GI) and No Rebound tenderness present Auscultation: normal bowel sounds Objective Data Vital Signs Vital Signs: Vital Signs - 24 hr 06/05/23 20:20 06/05/23 20:35 06/06/23 04:32 Temperature 98.5 F 98.6 F Pulse Rate 83 86 83 Respiratory Rate 18 16 Blood Pressure 163/84 H 147/78 H Pulse Oximetry 98 100 Oxygen Delivery 06/06/23 08:40 06/06/23 08:40 06/06/23 14:20 Temperature 98.9 F Pulse Rate 85 75 Respiratory Rate 18 Blood Pressure 140/68 Pulse Oximetry 99 Oxygen Delivery Room Air Room Air 06/06/23 14:44 06/06/23 14:54 Temperature Pulse Rate 83 98 Respiratory Rate 12 14 Blood Pressure 159/76 H 146/91 H Pulse Oximetry 97 99 Oxygen Delivery Room Air Intake/Output Intake/Output: Intake & Output 06/03/23 06/04/23 06/05/23 06/06/23 23:59 23:59 23:59 23:59 Intake Total 50 3200 2790 Balance 50 3200 2790 Meds/Results Medications: Active Medications Generic Name Dose Route Start Last Admin Trade Name Freq PRN Reason Stop Dose Admin Acetaminophen 650 mg 06/05/23 01:27 Acetaminophen 325 Mg Tablet PO Q4H PRN Mild Pain (1-3) or Fever Amlodipine Besylate 5 mg 06/05/23 21:00 06/05/23 20:36 Amlodipine Besylate 5 Mg Tablet PO 5 mg HS BRYCE Administration Aspirin 81 mg 06/05/23 09:00 06/06/23 08:40 Aspirin 81 Mg Enteric Tablet PO 81 mg DAILY BRYCE Administration Atorvastatin Calcium 40 mg 06/05/23 21:00 06/05/23 20:36 Atorvastatin 40 Mg Tablet PO 40 mg HS BRYCE Administration Cyclobenzaprine HCl 5 mg 06/05/23 08:17 Cyclobenzaprine Hcl 5 Mg Tablet PO TID PRN muscle spasm Dextrose 12.5 gm 06/05/23 08:18 Dextrose 50% 25 Gm/50 Ml Syringe IV PUSH PRN PRN Hypoglycemia Protocol Glucagon 1 mg 06/05/23 08:18 Glucagon For Inj 1 Mg Vial IM PRN PRN Hypoglycemia Protocol Glucose 15 gm 06/05/23 08:18 Glucose Oral Gel 15 Gm Of Glucse In 37.5 Gm Tube PO PRN PRN Hypoglycemia Protocol Metronidazole 500 mg in 100 mls @ 100 mls/hr 06/05/23 10:00 06/06/23 13:09 Flagyl 500 Mg/Iso Soln 100 Ml IVPB Infused Q8H BRYCE Infusion Ceftriaxone Sodium 1 gm in 50 mls @ 100 mls/hr 06/05/23 21:00 06/05/23 21:07 Rocephin 1 Gm/Ns 50 Ml IVPB Infused Q24H BRYCE Infusion Dextrose 1,000 mls @ 100 mls/hr 06/05/23 08:18 Dextrose 5% 1,000 Ml IVPB PRN
[2023-06-06 17:39] LABS: Glucose Point of Care 164 mg/dl (65-105)
[2023-06-06] MEDS: ATORVASTATIN 40 MG TABLET PO (21:21)
[2023-06-06] MEDS: amLODIPine BESYLATE 5 MG TABLET PO (21:21)
[2023-06-06] MEDS: TAMSULOSIN HCL 0.4 MG CAPSULE BY MOUTH (21:21)
[2023-06-07] MEDS: metroNIDAZOLE 500 MG/ISO 100ML 500 MG/100 ML BAG 100 MG IVPB ×2 (05:35→11:27)
[2023-06-07] MEDS: ACETAMINOPHEN 325 MG TABLET 650 MG PO ×3 (05:39→21:07)
[2023-06-07 05:48] LABS: Hematocrit 29.9 % (42.0-52.0); Hemoglobin 9.2 g/dL (14.0-18.0); Mean Corpuscular HGB Conc 30.8 g/dl (32-36); Mean Corpuscular Hemoglobin 25.9 pg (26-34); Mean Corpuscular Volume 84.2 fl (80-100); Mean Platelet Volume 9.9 fl (7.4-10.4); Platelet Count Result 145 k/mm3 (150-375); Red Blood Count 3.55 M/mm3 (4.6-6.20); White Blood Count 3.7 K/mm3 (4.5-10.0)
[2023-06-07 06:00] VITALS: BP 146/67; PULSE 81; RESP 18; TEMP 36.7; O2SAT 97
[2023-06-07 06:01] LABS: Alanine Aminotransferase 49 U/L (6-50); Albumin Level 2.8 g/dL (3.5-5.1); Alkaline Phosphatase 543 U/L (38-126); Anion Gap 6 mmol/L (8-16); Aspartate Amino Transferase 102 U/L (17-59); Bilirubin,Total 1.1 mg/dL (0.2-1.3); Blood Urea Nitrogen 20 mg/dL (9-20); Calcium 7.9 mg/dL (8.4-10.2); Carbon Dioxide 23 mmol/L (22-30); Chloride 110 mmol/L (98-107); Estimated CRCL calculation 41 ml/min; Estimated Glomerular Filt Rate 46; Glucose 123 mg/dL (65-110); Potassium 3.6 mmol/L (3.4-5.0); Sodium 139 mmol/L (137-145)
[2023-06-07 06:38] LABS: Glucose Point of Care 167 mg/dl (65-105)
[2023-06-07 07:40] LABS: Glucose Point of Care 130 mg/dl (65-105)
[2023-06-07 08:13] LABS: INR 1.3; Prothrombin Time 17.1 Seconds (11.1-14.7)
--- NOTE | 2023-06-07 08:43 | WPDANESPN ---
Anes - Prog Note Post-Op Date/Time: 06/07/23 08:43 Cardiovascular status: normal Respiratory status: normal Airway patency: baseline Mental status: baseline Post-Op hydration status: normal Vital Signs: Last Vital Signs Temp 36.7 C 06/07/23 06:00 Pulse 81 06/07/23 06:00 Resp 18 06/07/23 06:00 BP 146/67 H 06/07/23 06:00 Pulse Ox 97 06/07/23 06:00 O2 Del Method Room Air 06/06/23 20:34 Pain Score (VAS): 05/25 I/O: Intake & Output 06/06/23 06/07/23 06/07/23 23:59 07:59 15:59 Intake Total 890 600 Output Total 400 Balance 890 200 Laboratory Tests 06/07/23 05:22 06/07/23 05:22 06/06/23 06/06/23 06/06/23 08:39 09:23 09:23 WBC 4.9 RBC 3.71 L Hgb 9.7 L Hct 31.5 L MCV 84.9 MCH 26.1 MCHC 30.8 L RDW 16.2 H Plt Count 164 MPV 10.8 H ESR 131 H PT INR Sodium 135 L Potassium 3.6 Chloride 108 H Carbon Dioxide 21 L Anion Gap 6 L BUN 20 Creatinine 1.40 H Estim Creat Clear Calc 44 Estimated GFR 50 L Glucose 166 H POC Capillary Glucose 123 H Calcium 8.0 L Iron TIBC % Saturation Ferritin Total Bilirubin 1.3 1.3 Direct Bilirubin Cancelled Indirect Bilirubin GGT AST ALT Alkaline Phosphatase Ammonia C-Reactive Protein Total Protein Albumin Alpha-1-AT Phenotype Ceruloplasmin Vitamin B12 Folate TSH (Reflex) JEROD Screen Mitochondria M2 IgG Ab Actin IgG Antibody Hepatitis A IgM Ab Hep Bs Antigen Hep Bs Antibody Hep B Core Total Ab Hep B Core IgM Ab Hepatitis C Ab Screen HCV RNA (PCR) IUs/ml HCV RNA PCR log IUs/ml Hep C Genotype (PCR) 06/06/23 06/06/23 06/06/23 09:23 09:23 09:23 WBC RBC Hgb Hct MCV MCH MCHC RDW Plt Count MPV ESR PT INR Sodium Potassium Chloride Carbon Dioxide Anion Gap BUN Creatinine Estim Creat Clear Calc Estimated GFR Glucose POC Capillary Glucose Calcium Iron TIBC % Saturation Ferritin Total Bilirubin Direct Bilirubin 0.0 Indirect Bilirubin Cancelled GGT AST 93 H 93 H ALT 45 45 Alkaline Phosphatase 513 H Ammonia C-Reactive Protein Total Protein Albumin Alpha-1-AT Phenotype Ceruloplasmin Vitamin B12 Folate TSH (Reflex) JEROD Screen Mitochondria M2 IgG Ab Actin IgG Antibody Hepatitis A IgM Ab Hep Bs Antigen Hep Bs Antibody Hep B Core Total Ab Hep B Core IgM Ab Hepatitis C Ab Screen HCV RNA (PCR) IUs/ml HCV RNA PCR log IUs/ml Hep C Genotype (PCR) 06/06/23 06/06/23 06/06/23 09:23 09:23 09:23 WBC RBC Hgb Hct MCV MCH MCHC RDW Plt Count MPV ESR PT INR Sodium Potassium Chloride Carbon Dioxide Anion Gap BUN Creatinine Estim Creat Clear Calc Estimated GFR Glucose POC Capillary Glucose Calcium Iron TIBC % Saturation Ferritin Total Bilirubin Direct Bilirubin Indirect Bilirubin GGT AST ALT Alkaline Phosphatase 528 H Ammonia C-Reactive Protein 8.8 H Total Protein 8.0 8.0 Albumin 3.0 L 3.1 L Alpha-1-AT Phenotype Ceruloplasmin Vitamin B12 385.0 Folate 10.7 TSH (Reflex) JEROD Screen Mitochondria M2 IgG Ab Actin IgG Antibody Hepatitis A IgM Ab Hep Bs Antigen Hep Bs Antibody Hep B Core Total Ab Hep B Core IgM Ab Hepatitis C Ab Screen HCV RNA (PCR) IUs/ml HCV RNA PCR log IUs/ml Hep C Genotype (PCR) 06/06/23 06/06/23 06/06/23 09:24 09:24 09:24 WBC RBC Hgb Hct MCV MCH MCHC RDW Plt Count MPV ESR PT INR Sodium Potassium Chloride Carbon Dioxide Anion Gap BUN Creatinine Estim Creat Clear Calc Estimated GFR
[2023-06-07 08:45] VITALS: BP 135/90
[2023-06-07] MEDS: PANTOPRAZOLE 40 MG TABLET PO (08:46)
[2023-06-07] MEDS: LOSARTAN POTASSIUM 100 MG TABLET PO (08:46)
[2023-06-07] MEDS: ASPIRIN 81 MG ENTERIC TABLET PO (08:46)
[2023-06-07 08:47] VITALS: PULSE 82
[2023-06-07] MEDS: METOPROLOL TARTRATE 12.5 MG TABLET PO ×2 (08:47→20:54)
[2023-06-07] MEDS: ERTAPENEM 1 GM/NS 50 ML 1 GM/50 ML BAG IVPB (08:51)
[2023-06-07 11:35] LABS: Glucose Point of Care 190 mg/dl (65-105)
--- NOTE | 2023-06-07 11:58 | PM.IMPN ---
Progress Note: A&P Assessment and Plan (1) UTI (urinary tract infection): Code(s): N39.0 - Urinary tract infection, site not specified Status: Acute Assessment and Plan: UA with 2+ blood, positive nitrates, 2+ leukocyte esterase, greater than 100 wbc's and +1 bacteria. Urine culture positive for e. coli ESBL. Due to complicated cystitis patient will need 7 days of IV antibiotics. 06/07 Ertapenem started. Picc line ordered. 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 Urology consulted. GI and general surgery consult ordered. CT also showing a possible bladder tumor. Cystoscopy showing golf ball-sized mass in the bladder that will need biopsy. Urology wanting to schedule biopsy for next Tuesday06/14/2023. There was no sign of fistulous communication in the bladder. (3) Diverticulitis: Code(s): K57.92 - Diverticulitis of intestine, part unspecified, without perforation or abscess without bleeding Status: Acute Assessment and Plan: CT scan of the abdomen pelvis revealing diverticulitis. Patient denies any diarrhea at this time. Flagyl and Rocephin has been started on the patient. (4) Type 2 diabetes mellitus with complication: Code(s): E11.8 - Type 2 diabetes mellitus with unspecified complications Status: Acute Assessment and Plan: Insulin Lispro sliding scale, Accu-checks qAc and HS and Hold oral hypoglycemics Initiate hypoglycemic precautions (5) Hypertension: Code(s): I10 - Essential (primary) hypertension Status: Acute Assessment and Plan: Continue home medications. (6) Hyperlipidemia: Onset Date: ~06/05/23 Code(s): E78.5 - Hyperlipidemia, unspecified Status: Acute Assessment and Plan: Hold statin due to elevated LFTs. (7) Chronic kidney disease: Code(s): N18.9 - Chronic kidney disease, unspecified Status: Acute Assessment and Plan: Patient's BUN and creatinine 27/1.6. Unknown normal. Continue to monitor. (8) Cirrhosis: Code(s): K74.60 - Unspecified cirrhosis of liver Status: Acute Assessment and Plan: CT of the abdomen pelvis showing cirrhosis, mild splenomegaly and minimal ascites. Pt with no hx of cirrhosis. No hx of alcohol abuse. RUQ US showing cirrhosis. Cirrhosis workup ordered. GI also on case. Would suspect that this is cased by fatty liver disease. MELD score of 14. Mild to moderate disease. Recommend follow up with engineering design supervisor as outpatient. Subjective Date/time seen: 06/07/23 11:58 Interval history: Patient doing well today. He continues to have urinary frequency but this has improved. His dysuria has also improved. He denies any flank pain, body aches, chills, nausea or vomiting. He is not having any diarrhea, melena or hematochezia. His urine culture came back positive for E coli ESBL in due to UTI being complicated he was started on IV antibiotics and will need IV antibiotics going home. Discussed this at length with both patient and his . Also discussed his elevated BUN and creatinine. Patient is did not know if he has a history of this or not. It does say that patient has chronic kidney disease in his chart but it is unknown what his baseline is. Asked for lab report from PCP. Patient's meld score is 14 which is mild to moderate disease. Will leave up to surgery discretion to move forward with possible surgery. Exam Narrative: GENERAL: Comfortable, no acute distress HENMT: moist mucous membranes EYES: EOM intact b/l NECK: no lymphadenopathy RESPIRATORY: distant breath sounds CARDIO: RRR GI: soft, nontender, bowel sounds present, distended SKIN: no rashes EXTREMITIES: n
[2023-06-07] MEDS: LIDOCAINE HCL 1% LOCAL INJ 2 ML AMPUL 5 ML INFILTRATE (12:00)
--- NOTE | 2023-06-07 13:10 | WPDGIPROGNO ---
Progress Note: A&P Assessment and Plan (1) Bladder mass: Code(s): N32.89 - Other specified disorders of bladder Status: Acute Assessment and Plan: new finding, urology on board and planning to do biopsy soon (2) Cirrhosis: Code(s): K74.60 - Unspecified cirrhosis of liver Status: Acute Assessment and Plan: new diagnosis, probably sanders related given risk factors blood work to look for other causes pending he will need follow-up with liver imaging every 6 months (3) Urinary tract infection: Qualifiers: Hematuria presence: with hematuria Urinary tract infection type: acute cystitis Qualified Code(s): N30.01 - Acute cystitis with hematuria Code(s): N39.0 - Urinary tract infection, site not specified Status: Acute Assessment and Plan: on treatment (4) Diverticulitis: Code(s): K57.92 - Diverticulitis of intestine, part unspecified, without perforation or abscess without bleeding Status: Acute Assessment and Plan: possible diverticulitis had colonoscopy 3 years ago surgery on board- possible colovesical fistula (5) Type 2 diabetes mellitus with complication: Code(s): E11.8 - Type 2 diabetes mellitus with unspecified complications Status: Acute (6) Hypertension: Code(s): I10 - Essential (primary) hypertension Status: Acute Subjective Date/time seen: 06/07/23 13:10 Interval history: cystoscopy showed mass in bladder he is comfortable, tolerating diet, no really much of abdominal pain Review of Systems Review of Systems: All systems reviewed & are unremarkable except as noted in HPI and below Exam Const: General: comfortable and no acute distress HENMT: Ears: TM's normal bilaterally Face/Nose/Sinus: Normal nares present Mouth: Yes moist mucous membranes Eyes: General: appearance normal, both eyes and all related structures Sclera: sclerae normal Neck: Neck: supple Resp: Effort & Inspection: normal respiratory effort Auscultation: clear to auscultation bilaterally Cardio: Rate: regular rate Rhythm: regular rhythm GI: Inspection: non-distended GI Palp: Yes Soft to palpation and No Guarding due to palpation present (GI) Auscultation: normal bowel sounds Other: mild tenderness to palpation suprapubic Skin: General skin exam: normal color and no rashes or lesions noted Neuro: Speech: normal speech Motor exam (neuro): 5/5 motor strength present throughout Sensory Exam: normal sensation Extrem: General: normal to inspection Psych: Mental Status: mental status grossly normal Affect: normal affect Objective Data Vital Signs Vital Signs: Vital Signs - 24 hr 06/06/23 14:20 06/06/23 14:44 06/06/23 14:54 Temperature 98.9 F Pulse Rate 75 83 98 Respiratory Rate 18 12 14 Blood Pressure 140/68 159/76 H 146/91 H Pulse Oximetry 99 97 99 Oxygen Delivery Room Air Room Air 06/06/23 15:10 06/06/23 20:34 06/06/23 21:21 Temperature 97.7 F Pulse Rate 85 88 Respiratory Rate 18 Blood Pressure 146/77 H Pulse Oximetry 100 98 Oxygen Delivery Room Air 06/06/23 21:43 06/06/23 20:00 06/07/23 06:00 Temperature 98.3 F 98.0 F Pulse Rate 81 81 Respiratory Rate 20 18 Blood Pressure 136/67 146/67 H Pulse Oximetry 99 97 Oxygen Delivery Room Air 06/07/23 08:47 06/07/23 08:45 06/07/23 08:45 Temperature Pulse Rate 82 Respiratory Rate Blood Pressure 135/90 Pulse Oximetry Oxygen Delivery Room Air Intake/Output Intake/Output: Intake & Output 06/04/23 06/05/23 06/06/23 06/07/23 23:59 23:59 23:59 23:59 Intake Total 50 3200 3680 990 Output Total 400 Balance 50 3200 3680 590 Meds/Results Medications: Active Medications Generic Name Dose Route Start Last Admin Trade Name Freq PRN Reason Stop Dose Admin Acetaminophen 650 mg 06/05/23 01:27 06/07/23 05:39 Acetaminophen 325 Mg Tablet PO 650 mg Q4H PRN Administration M
--- NOTE | 2023-06-07 13:10 | WPDUROPN2 ---
Progress Note: A&P Assessment and Plan (1) Bladder mass: Code(s): N32.89 - Other specified disorders of bladder Status: Acute Assessment and Plan: Will plan on transurethral resection of his bladder mass next Tuesday. Further recommendations pending that. Difficult to tell whether this is truly a primary bladder lesion or simply inflammatory reaction From possible colovesical fistula. 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 See above Subjective Subjective Date/Time Seen: 06/07/23 13:10 Principal diagnosis: Possible colovesical fistula with bladder mass Interval history: Chris feeling better today. He most likely will be discharged home with IV antibiotics. Have discussed proceeding with cysto with transurethral resection of this bladder mass. Will see if we can get it scheduled for next Tuesday. Review of Systems Review of Systems: All systems reviewed & are unremarkable except as noted in HPI and below Exam Const: General: cooperative, healthy appearing and comfortable Resp: Effort & Inspection: normal respiratory effort Cardio: Rate: regular rate Rhythm: regular rhythm Objective Data Vital Signs Vital Signs: Vital Signs - 24 hr 06/06/23 14:20 06/06/23 14:44 06/06/23 14:54 Temperature 37.2 C Pulse Rate 75 83 98 Respiratory Rate 18 12 14 Blood Pressure 140/68 159/76 H 146/91 H Pulse Oximetry 99 97 99 Oxygen Delivery Room Air Room Air 06/06/23 15:10 06/06/23 20:34 06/06/23 21:21 Temperature 36.5 C Pulse Rate 85 88 Respiratory Rate 18 Blood Pressure 146/77 H Pulse Oximetry 100 98 Oxygen Delivery Room Air 06/06/23 21:43 06/06/23 20:00 06/07/23 06:00 Temperature 36.8 C 36.7 C Pulse Rate 81 81 Respiratory Rate 20 18 Blood Pressure 136/67 146/67 H Pulse Oximetry 99 97 Oxygen Delivery Room Air 06/07/23 08:47 06/07/23 08:45 06/07/23 08:45 Temperature Pulse Rate 82 Respiratory Rate Blood Pressure 135/90 Pulse Oximetry Oxygen Delivery Room Air Intake/Output Intake/Output: Intake & Output 06/04/23 06/05/23 06/06/23 06/07/23 23:59 23:59 23:59 23:59 Intake Total 50 3200 3680 990 Output Total 400 Balance 50 3200 3680 590 Meds/Results Medications: Active Medications Generic Name Dose Route Start Last Admin Trade Name Chi PRN Reason Stop Dose Admin Acetaminophen 650 mg 06/05/23 01:27 06/07/23 05:39 Acetaminophen 325 Mg Tablet PO 650 mg Q4H PRN Administration Mild Pain (1-3) or Fever Amlodipine Besylate 5 mg 06/05/23 21:00 06/06/23 21:21 Amlodipine Besylate 5 Mg Tablet PO 5 mg HS BRYCE Administration Aspirin 81 mg 06/05/23 09:00 06/07/23 08:46 Aspirin 81 Mg Enteric Tablet PO 81 mg DAILY BRYCE Administration Atorvastatin Calcium 40 mg 06/05/23 21:00 06/06/23 21:21 Atorvastatin 40 Mg Tablet PO 40 mg HS BRYCE Administration Cyclobenzaprine HCl 5 mg 06/05/23 08:17 Cyclobenzaprine Hcl 5 Mg Tablet PO TID PRN muscle spasm Dextrose 12.5 gm 06/05/23 08:18 Dextrose 50% 25 Gm/50 Ml Syringe IV PUSH PRN PRN Hypoglycemia Protocol Glucagon 1 mg 06/05/23 08:18 Glucagon For Inj 1 Mg Vial IM PRN PRN Hypoglycemia Protocol Glucose 15 gm 06/05/23 08:18 Glucose Oral Gel 15 Gm Of Glucse In 37.5 Gm Tube PO PRN PRN Hypoglycemia Protocol Dextrose 1,000 mls @ 100 mls/hr 06/05/23 08:18 Dextrose 5% 1,000 Ml IVPB PRN PRN Hypoglycemia Protocol Ertapenem 1 gm in 50 mls @ 100 mls/hr 06/07/23 09:00 06/07/23 09:21 Invanz 1 Gm/Ns 50 Ml IVPB Infused Q24H BRYCE Infusion Insulin Aspart 2 - 5 units 06/05/23 08:30 06/07/23 12:08 Insulin Aspart (*Bkc) 100 Units/Ml SUB-Q Not Given TIDWM [facility] Protocol Insulin Aspart 1 - 2 units 06/05/23 21:00 06/06/23 22:35 Ins
[2023-06-07 14:13] VITALS: BP 133/87; PULSE 77; RESP 16; TEMP 37.1; O2SAT 98
--- NOTE | 2023-06-07 14:53 | PM.PNGS ---
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 Urology planning to biopsy this as an outpatient next Tuesday. Urine cx growing ESBL ecoli that will require IV antibiotics. Hospitalist planning for a week of outpatient IV antibiotics. Possibly home with IV antibiotics in the next 1-2 days. Further plan depending on Urology workup. (2) Cirrhosis: Code(s): K74.60 - Unspecified cirrhosis of liver Status: Acute Assessment and Plan: Will need to assess the degree of liver disease before recommending any specific surgical management for his colovesical fistula. (3) Diverticulitis: Code(s): K57.92 - Diverticulitis of intestine, part unspecified, without perforation or abscess without bleeding Status: Acute Plan I have discussed the patient's case and plan of care with Dr. Gutierrez. Subjective Subjective Date/Time Seen: 06/07/23 14:53 Patient reports: no new complaints, tolerating a regular diet and afebrile Interval history: No changes overnight. No new complaints today. Urology setting up patient for procedure next Tuesday as an outpatient. Patient had midline catheter placed today for home IV antibiotics as his urine culture grew ESBL E coli. Exam Const: General: comfortable and no acute distress GI: Inspection: non-distended GI Palp: Yes Soft to palpation, No Tenderness to palpation present (GI) and No Guarding due to palpation present (GI) Objective Data Vital Signs Vital Signs: Vital Signs - 24 hr 06/06/23 14:54 06/06/23 15:10 06/06/23 20:34 Temperature 97.7 F Pulse Rate 98 85 Respiratory Rate 14 18 Blood Pressure 146/91 H 146/77 H Pulse Oximetry 99 100 98 Oxygen Delivery Room Air 06/06/23 21:21 06/06/23 21:43 06/06/23 20:00 Temperature 98.3 F Pulse Rate 88 81 Respiratory Rate 20 Blood Pressure 136/67 Pulse Oximetry 99 Oxygen Delivery Room Air 06/07/23 06:00 06/07/23 08:47 06/07/23 08:45 Temperature 98.0 F Pulse Rate 81 82 Respiratory Rate 18 Blood Pressure 146/67 H 135/90 Pulse Oximetry 97 Oxygen Delivery 06/07/23 08:45 06/07/23 14:13 Temperature 98.7 F Pulse Rate 77 Respiratory Rate 16 Blood Pressure 133/87 Pulse Oximetry 98 Oxygen Delivery Room Air Intake/Output Intake/Output: Intake & Output 06/04/23 06/05/23 06/06/23 06/07/23 23:59 23:59 23:59 23:59 Intake Total 50 3200 3680 1190 Output Total 400 Balance 50 3200 3680 790 Meds/Results Medications: Active Medications Generic Name Dose Route Start Last Admin Trade Name Freq PRN Reason Stop Dose Admin Acetaminophen 650 mg 06/05/23 01:27 06/07/23 05:39 Acetaminophen 325 Mg Tablet PO 650 mg Q4H PRN Administration Mild Pain (1-3) or Fever Amlodipine Besylate 5 mg 06/05/23 21:00 06/06/23 21:21 Amlodipine Besylate 5 Mg Tablet PO 5 mg HS BRYCE Administration Aspirin 81 mg 06/05/23 09:00 06/07/23 08:46 Aspirin 81 Mg Enteric Tablet PO 81 mg DAILY BRYCE Administration Atorvastatin Calcium 40 mg 06/05/23 21:00 06/06/23 21:21 Atorvastatin 40 Mg Tablet PO 40 mg HS BRYCE Administration Cyclobenzaprine HCl 5 mg 06/05/23 08:17 Cyclobenzaprine Hcl 5 Mg Tablet PO TID PRN muscle spasm Dextrose 12.5 gm 06/05/23 08:18 Dextrose 50% 25 Gm/50 Ml Syringe IV PUSH PRN PRN Hypoglycemia Protocol Glucagon 1 mg 06/05/23 08:18 Glucagon For Inj 1 Mg Vial IM PRN PRN Hypoglycemia Protocol Glucose 15 gm 06/05/23 08:18 Glucose Oral Gel 15 Gm Of Glucse In 37.5 Gm Tube PO PRN PRN Hypoglycemia Protocol Dextrose 1,000 mls @ 100 mls/hr 06/05/23 08:18 Dextrose 5% 1,000 Ml IVPB PRN PRN Hypoglycemia Leo
[2023-06-07] MEDS: SALINE LOCK FLUSH 10 ML IV PUSH (16:27)
--- NOTE | 2023-06-07 16:28 | PC.NURSE ---
Pt refused insulin, states he does not take insulin at home
[2023-06-07 16:32] LABS: Glucose Point of Care 205 mg/dl (65-105)
[2023-06-07 20:30] VITALS: BP 140/69; PULSE 77; RESP 16; TEMP 36.9; O2SAT 99
[2023-06-07 20:54] VITALS: PULSE 85
[2023-06-07] MEDS: ATORVASTATIN 40 MG TABLET PO (20:54)
[2023-06-07] MEDS: amLODIPine BESYLATE 5 MG TABLET PO (20:55)
[2023-06-07] MEDS: TAMSULOSIN HCL 0.4 MG CAPSULE BY MOUTH (20:55)
[2023-06-07] MEDS: INSULIN ASPART (*BKC) 100 UNITS/ML SUB-Q (20:56)
[2023-06-07] MEDS: CYCLOBENZAPRINE HCL 5 MG TABLET PO (21:07)
[2023-06-07 22:05] LABS: Glucose Point of Care 205 mg/dl (65-105)
[2023-06-08 04:48] VITALS: BP 159/87; PULSE 73; RESP 16; TEMP 36.6; O2SAT 96
[2023-06-08 06:03] LABS: Basophils Percent Auto 0.6 % (0.2-1.2); Eosinophils Absolute Auto 0.1 K/mm3 (0-0.3); Eosinophils Percent Auto 3.1 % (0-4.4); Hematocrit 30.6 % (42.0-52.0); Hemoglobin 9.2 g/dL (14.0-18.0); Immature Granulocyte Absolute 0.04 K/mm3 (0.00-0.031); Immature Granulocyte Percent A 1.1 % (0-0.5); Lymphocytes Absolute Auto 0.52 K/mm3 (0.9-3.2); Lymphocytes Percent Auto 14.4 % (18.3-44.2); Mean Corpuscular HGB Conc 30.1 g/dl (32-36); Mean Corpuscular Hemoglobin 25.9 pg (26-34); Mean Corpuscular Volume 86.2 fl (80-100); Mean Platelet Volume 10.5 fl (7.4-10.4); Monocytes Absolute Auto 0.4 K/mm3 (0.1-0.6); Monocytes Percent Auto 11.1 % (2.6-8.5); Neutrophils Absolute Auto 2.5 K/mm3 (1.3-6.7); Neutrophils Percent Auto 69.7 % (45.5-73.1); Nucleated Red Blood Cells Perc 0.6 % (0.0-0.2); Platelet Count Result 165 k/mm3 (150-375); Red Blood Count 3.55 M/mm3 (4.6-6.20); Red Cell Distribution Width 15.9 % (11.5-14.5); White Blood Count 3.6 K/mm3 (4.5-10.0)
[2023-06-08] MEDS: SALINE LOCK FLUSH 10 ML IV PUSH ×2 (06:07)
[2023-06-08 06:12] LABS: Alanine Aminotransferase 48 U/L (6-50); Albumin Level 2.8 g/dL (3.5-5.1); Alkaline Phosphatase 563 U/L (38-126); Anion Gap 8 mmol/L (8-16); Aspartate Amino Transferase 98 U/L (17-59); Bilirubin,Total 0.9 mg/dL (0.2-1.3); Blood Urea Nitrogen 20 mg/dL (9-20); Carbon Dioxide 23 mmol/L (22-30); Chloride 110 mmol/L (98-107); Estimated CRCL calculation 44 ml/min; Estimated Glomerular Filt Rate 50; Glucose 132 mg/dL (65-110); Potassium 3.8 mmol/L (3.4-5.0); Sodium 141 mmol/L (137-145)
[2023-06-08 06:44] LABS: Atypical Lymphocytes Present; Platelet Estimate Adequate (Adequate); Schistocytes None Seen (NORMAL)
[2023-06-08 08:38] LABS: Glucose Point of Care 152 mg/dl (65-105)
[2023-06-08 09:52] VITALS: PULSE 81
[2023-06-08] MEDS: METOPROLOL TARTRATE 12.5 MG TABLET PO (09:52)
[2023-06-08] MEDS: ERTAPENEM 1 GM/NS 50 ML 1 GM/50 ML BAG IVPB (09:52)
[2023-06-08] MEDS: ASPIRIN 81 MG ENTERIC TABLET PO (09:52)
[2023-06-08] MEDS: PANTOPRAZOLE 40 MG TABLET PO (09:52)
[2023-06-08] MEDS: LOSARTAN POTASSIUM 100 MG TABLET PO (09:52)
--- NOTE | 2023-06-08 12:01 | WPDGIPROGNO ---
Progress Note: A&P Assessment and Plan (1) Bladder mass: Code(s): N32.89 - Other specified disorders of bladder Status: Acute Assessment and Plan: new finding, urology on board and planning to do biopsy next week as outpatient plan is IV antibiotics at home and then come back for procedure, then further recommendation based on urological findings (surgery on board) (2) Cirrhosis: Code(s): K74.60 - Unspecified cirrhosis of liver Status: Acute Assessment and Plan: new diagnosis, probably sanders related given risk factors cirrhosis is compensated and no contraindications to surgery if needed he will need follow-up with liver imaging every 6 months and office visit, at some point also will need EGD to assess for portal hypertension (3) Urinary tract infection: Qualifiers: Hematuria presence: with hematuria Urinary tract infection type: acute cystitis Qualified Code(s): N30.01 - Acute cystitis with hematuria Code(s): N39.0 - Urinary tract infection, site not specified Status: Acute Assessment and Plan: on treatment (4) Diverticulitis: Code(s): K57.92 - Diverticulitis of intestine, part unspecified, without perforation or abscess without bleeding Status: Acute Assessment and Plan: possible diverticulitis had colonoscopy 3 years ago surgery on board- possible colovesical fistula but awaiting on urological intervention (5) Type 2 diabetes mellitus with complication: Code(s): E11.8 - Type 2 diabetes mellitus with unspecified complications Status: Acute (6) Hypertension: Code(s): I10 - Essential (primary) hypertension Status: Acute Subjective Date/time seen: 06/08/23 12:01 Interval history: no new issues, still some dysuria but improving Review of Systems Review of Systems: All systems reviewed & are unremarkable except as noted in HPI and below Exam Const: General: comfortable and no acute distress HENMT: Face/Nose/Sinus: Normal nares present Eyes: General: appearance normal, both eyes and all related structures Neck: Neck: supple Resp: Auscultation: clear to auscultation bilaterally Cardio: Rate: regular rate Rhythm: regular rhythm GI: Inspection: non-distended GI Palp: Yes Soft to palpation, No Tenderness to palpation present (GI) and No Guarding due to palpation present (GI) Auscultation: normal bowel sounds Skin: General skin exam: normal color Neuro: Speech: normal speech Motor exam (neuro): 5/5 motor strength present throughout Extrem: General: normal to inspection Psych: Mental Status: mental status grossly normal Objective Data Vital Signs Vital Signs: Vital Signs - 24 hr 06/07/23 14:13 06/07/23 20:30 06/07/23 20:54 Temperature 98.7 F 98.4 F Pulse Rate 77 77 85 Respiratory Rate 16 16 Blood Pressure 133/87 140/69 Pulse Oximetry 98 99 Oxygen Delivery 06/07/23 20:00 06/08/23 04:48 06/08/23 09:52 Temperature 98 F Pulse Rate 73 81 Respiratory Rate 16 Blood Pressure 159/87 H Pulse Oximetry 96 Oxygen Delivery Room Air 06/08/23 09:52 Temperature Pulse Rate Respiratory Rate Blood Pressure Pulse Oximetry Oxygen Delivery Room Air Intake/Output Intake/Output: Intake & Output 06/05/23 06/06/23 06/07/23 06/08/23 23:59 23:59 23:59 23:59 Intake Total 3200 3680 1808 760 Output Total 400 Balance 3200 3680 1408 760 Meds/Results Medications: Active Medications Generic Name Dose Route Start Last Admin Trade Name Freq PRN Reason Stop Dose Admin Acetaminophen 650 mg 06/05/23 01:27 06/07/23 21:07 Acetaminophen 325 Mg Tablet PO 650 mg Q4H PRN Administration Mild Pain (1-3) or Fever Amlodipine Besylate 5 mg 06/05/23 21:00 06/07/23 20:55 Amlodipine Besylate 5 Mg Tablet PO 5 mg HS BRYCE Administration Aspirin 81 mg 06/05/23 09:00 06/08/23 09:52 Aspirin 81 Mg Enteric Tablet PO 81 mg DAILY REPLACED BY [facility]
[2023-06-08 12:32] LABS: Glucose Point of Care 301 mg/dl (65-105)
--- NOTE | 2023-06-08 12:47 | P.PNINF_ITS ---
Pharmacy ID Consult - Stewardship Interventions Type of Interventions: Discharge Recommendation Pharmacy ID Note: Subjective Pharmacy was consulted by Eduin Morgan regarding infectious diseases for Daron Soares. Daron Soares is a 72 year old M with concerns regarding discharge cla rification for treatment of ertapenem. Background The patient is currently receiving Ertapenem 1g daily (Day 2 of therapy) for the treatment of ESBL e coli UTI as well as providing coverage for concurrent potential GI infection. The patient's PMH includes that what is listed in various provider notes but include potential bladder mass and potential fistula. Microbiology 06/04/23 18:00 Urine Clean Catch Urine Culture - Final Escherichia Coli Laboratory Tests 06/04/23 06/04/23 06/04/23 20:42 20:42 20:42 WBC 6.4 Creatinine 1.60 H Estim Creat Clear Calc 43 06/06/23 06/06/23 06/06/23 09:23 09:23 09:23 WBC 4.9 Creatinine 1.40 H Estim Creat Clear Calc 44 06/07/23 06/07/23 06/07/23 05:22 05:22 05:22 WBC 3.7 L Creatinine 1.50 H Estim Creat Clear Calc 41 06/08/23 06/08/23 06/08/23 05:54 05:54 05:54 WBC 3.6 L Creatinine 1.40 H Estim Creat Clear Calc 44 Assessment/Recommendation/Discussion Spoke briefly with provider yesterday regarding this ESBL isolate (e coli with resistance to ceftriaxone, but not to carbapenem). Provider determines that this is complicated cystitis with the isolate showing resistance to SMX/TMP and fluoroquinolones leaving carbapenem therapy to be appropriate. Patient eCrCl is 44 mL/min which leaves dosing appropriate. Duration per provider to be 7 days which is appropriate for cUTI per guidelines and literature. Ertapenem 1g daily for 7 days starting from 06/07 per provider plan is appropriate placing potential end date at 06/13. Potentially, source control is needed between the mass or potential fistula which may extend treatment but will need further investigation and will change indication. Defer that portion of care to provider team(s). Will sign off. Thank you for the interesting consult. Jarrod Acharya, PharmD Infectious Disease/Antimicrobial Stewardship Pharmacist 06/08/23; 1247 WBC 3.6 K/mm3 (4.5-10.0) L 06/08/23 05:54 Creatinine 1.40 mg/dL (0.7-1.3) H 06/08/23 05:54 Estim Creat Clear Calc 44 ml/min 06/08/23 05:54
[2023-06-08 13:02] LABS: Actin Antibody (IgG) 54 U (<20)
[2023-06-08 14:10] LABS: Hepatitis C Viral RNA PCR <15 IU/mL
--- NOTE | 2023-06-08 15:02 | PM.DS ---
DS: Admitting Diagnosis Discharge Date 06/08/23 Admitting Diagnosis UTI Diverticulitis Colovesical fistula Type 2 diabetes Hypertension Hyperlipidemia Chronic kidney disease Cirrhosis DS: Summary Hospital Course Reason for hospitalization: Urinary tract infection Diverticulitis Colovesical fistula Cirrhosis Hospital Course: This is a 72 year old male who presented to the hospital on 06/04/23 with complaints of dysuria and urinary frequency. He was recently seen in the urology office due to these symptoms and was put on ciprofloxacin. He did not have any improvement with this antibiotic and presented to the ED for further assessment. Workup in the hospital included a CT of the abdomen pelvis which revealed air within the bladder lumen which may be due to instrumentation versus fistula with the sigmoid colon due to either sigmoid diverticulitis or bladder new plasm, diverticulosis of the colon mild diverticulitis is not excluded in the sigmoid area, cirrhosis, mild splenomegaly, minimal ascites, small sliding hiatal hernia, 1 cm left renal cyst. Abdomen ultrasound was also performed and revealed cirrhosis with minimal amount perihepatic ascites, status post cholecystectomy. Labs revealed a white blood cell count of 6.4, RBC 4.24, hemoglobin 11.1, hematocrit 36.0, sodium 135, BUN 27, creatinine 1.6, EGFR 43, total bili 1.5, AST 84, alk-phos 482, total protein 9, hepatitis panel was negative, actin IgG antibody was high at 54, JEROD screen and mitochondria M2 IgG AB are both pending. UA showing 2+ protein, trace ketones, 2+ urine blood, positive nitrates, 1+ bili, 2+ leukocytes, 3-5 urine RBCs, greater than 100 urine wbc's, 1+ bacteria. Urine was sent for culture which showed E coli on final read. Patient was covered with Ertapenem. Patient was seen by urology and had a cystoscopy performed which showed a 2-3 cm mass in the posterior wall near the bladder dome. Plan is for him to have an outpatient TURP with biopsy with urology. General surgery was also consulted for colovesical fistula and they recommend workup with urology with resection of the bladder mass before they would do anything with the colon. GI was also consulted due to his cirrhosis and they are recommending every 6 month liver imaging and EGD assessment of portal hypertension on an outpatient basis once he is cleared medically by Urology and General surgery. Plan for him to discharge today with home care and home infusions of Ertapenem until 06/13/2023. He will need to follow up with his urologist in 2 weeks, and follow up with his primary care physician within 1 week. Final diagnosis: Urinary tract infection, diverticulitis, colovesical fistula, cirrhosis Status at Discharge Cognitive/behavioral status at discharge: Alert and oriented x3 Functional status at discharge: independent ambulation Overall status at discharge: patient is progressing back to baseline Time Spent with Patient Time attestation: Total time spent providing and/or coordinating discharge services: Time spent: Greater than 30 minutes Exam Narrative: General: In no acute distress, well nourished Head: atraumatic, no encephalopathy Eyes: EOMI, PERRLA, sclera clear ENT: moist mucous membranes, nasal passages clear Neck: supple, no JVD, no adenopathy, trachea midline Cardiac: Normal S1 and S2. RRR. No murmur, gallops or friction rubs, peripheral pulses intact. Respiratory: Lungs clear to auscultation, no adventitious lung sounds Gastrointestinal: soft, non-distended, non-tender, normoactive bowel sounds. : voiding without difficulty. Extremities: moves all extremities well, no edema, good ROM, strength 5/5 Skin: clean, dry, intact. No wounds or lesions. Neuro: Alert and oriented x4, cranial nerves intact, no neuro deficits. Psych: normal mood, normal affect, interactive DS: Data Data Completed and Pending Completed studies during hospitalization: Abdomen pelvis CT Ultrasound Pending studies at dis
[2023-06-08 21:52] LABS: Anti Nuclear Antibody Titer >=1:1280 (Negative)
[2023-06-09 09:57] LABS: Ceruloplasmin 40 mg/dL (18-36)
[2023-06-09 10:16] LABS: Hepatitis B Core Ab Total Nonreactive (Nonreactive)
[2023-06-09 19:29] LABS: GGT 299 U/L (3-70)
[2023-06-10 21:18] LABS: Mitochondrial (M2) Ab (IgG) <=20.0 U (<=20.0)
== END 2023-06-08 16:00 | disposition home or self-care (01) | DRG 699 ==
LOC: ANHED 06-05 01:54 → ANH3MED 06-05 03:14
PROVIDERS: Internal Medicine Critical Care Medicine; Urology; Admitting Provider Internal Medicine; Emergency Provider Student in an Organized Health Care Education/Training Program; PCP Family Medicine; Visit Provider Nurse Practitioner Acute Care
PROC: 0TJB8ZZ Inspection of Bladder, Via Natural or Artificial Opening Endoscopic (ICD-10-PCS; CPT 52000; principal; 2023-06-06 14:30)
DX: N32.1 Vesicointestinal fistula (principal); K57.92 Diverticulitis of intestine, part unspecified, without perforation or abscess without bleeding; N30.01 Acute cystitis with hematuria; Z16.12 Extended spectrum beta lactamase (ESBL) resistance; B96.20 Unspecified Escherichia coli [E. coli] as the cause of diseases classified elsewhere; N32.89 Other specified disorders of bladder; K74.60 Unspecified cirrhosis of liver; K75.81 Nonalcoholic steatohepatitis (NASH); E11.22 Type 2 diabetes mellitus with diabetic chronic kidney disease; E78.5 Hyperlipidemia, unspecified; I25.2 Old myocardial infarction; I25.10 Atherosclerotic heart disease of native coronary artery without angina pectoris; I12.9 Hypertensive chronic kidney disease with stage 1 through stage 4 chronic kidney disease, or unspecified chronic kidney disease; N40.0 Benign prostatic hyperplasia without lower urinary tract symptoms; N18.9 Chronic kidney disease, unspecified; Z95.5 Presence of coronary angioplasty implant and graft; Z90.49 Acquired absence of other specified parts of digestive tract; Z87.891 Personal history of nicotine dependence; Z79.82 Long term (current) use of aspirin; Z79.84 Long term (current) use of oral hypoglycemic drugs
CPT/HCPCS: 36415; 36569; 74178; 76705; 80053; 80074; 80076; 81001; 82104; 82140; 82390; 82607; 82728; 82746; 82948; 82977; 83520; 83540; 83550; 84443; 85025; 85027; 85610; 85652; 86038; 86039; 86140; 86364; 86704; 86705; 86706; 86709; 86803; 87077; 87086; 87088; 87186; 87340; 87522; 87902; 96361; 96365; 96366; 96367; 99285; A9270; G0378; J0696; J1335; J1815; J1836; J7030; Q9967

== ENCOUNTER 2023-06-14 00:47 | Day surgery (SDC) | payer MEDICARE, SELFPAY ==
--- NOTE | 2023-06-10 08:56 | PC.NURSE ---
Report to the Outpatient Waiting Room, entrance under the green pavilion located off [facility], at time _0945 on date _06/14/23 . Planned Procedure Time: __1145 . Time changes happen often and if your time is changed the preop area will call you the afternoon before. - You and your visitor will be asked to self-screen and do not enter if you have any COVID symptoms. - A mask is optional within the hospital at this time. Patients may have clear liquids (water, carbonated beverages, clear teas, apple juice) until 3 hours prior to surger(0845)y with a maximum of 20 ounces. - No food from midnight until time of surgery - Infants may have breast milk until 4 hours before surgery, formula 6 hours prior to surgery. - Children will be allowed to drink immediately following surgery. If applicable, please bring a bottle or sippy cup to assist with drinking. Juice, water, soda, and popsicles are readily available. For infants on formula, please bring formula the day of surgery. Pacifiers are allowed. Take the following medications with a SIP of water the morning of surgery: ___AMLODIPINE,METOPROLOL DO NOT STOP ANY OF YOUR OTHER PRESCRIPTION MEDICATIONS PRIOR TO SURGERY ?EXCEPT THE FOLLOWING Medications to discontinue per physician WIFE STATES LAST DOSE ASPIRIN 06/04/23 Date to take last dose Please no make-up, nail azeri, hairspray, perfume, deodorant, or body powder the day of surgery. No jewelry (including any body piercings) or valuables the day of surgery, leave them at home. Please take a shower or bath the night before, or the morning of, surgery with an antibacterial soap. Wear comfortable, loose fitting clothing. Children are encouraged to wear pajamas. - Jewelry must be removed prior to entering the operating room. Rings and piercings that are not removed may be cut off. - The hospital will not accept responsibility for valuables. - Please leave all valuables, including medications, at home the day of surgery. If you are going home after surgery, a licensed entry driver operator must drive you home. - NO public transportation without another adult if you receive anesthesia. - We recommend that an adult stay with you for 24 hours following discharge. - We also recommend that you do not drive, make important decision, drink alcoholic beverages, or take any drugs that were not prescribed by your health care provider for at least 24 hours after your discharge time. For Pediatric surgeries, we recommend two adults accompany the child home. Follow any additional instructions given to you from your surgeon. If you or anyone in your household have experienced Covid symptoms in the past week, please notify your surgeon or the nurse liaison at the phone number below for possible testing. Telephone instructions given to __PT AND EN and asked if any additional questions and then verbalized understanding. Patient advised to call surgeon office or pre surgery nurse liaison [phone] if any additional questions.
[2023-06-10 09:07] VITALS: BMI 30.1
[2023-06-14] VITALS (19 sets, daily range): BP systolic 137–171; BP diastolic 70–87; PULSE 56–76; RESP 13–19; TEMP 36.3–36.7; O2SAT 93–100
--- NOTE | ~2023-06-14 | XR_ITS ---
EXAMINATION: XR OR cystogram 1-2V DATE: 06/14/2023 12:10 INDICATION: Bladder lesion. TECHNIQUE: 12 intraoperative fluoroscopic views of the pelvis were obtained. I was not present. Fluor oscopy exposure time was 30 seconds. COMPARISON: CT abdomen and pelvis 06/04/2023 FINDINGS: The bladder is well distended by contrast. There is no extraluminal leakage of contrast. No fistula. IMPRESSION: 1. No extraluminal leakage of contrast from the bladder. Reviewed, dictated and finalized at location A. [facility]
--- NOTE | 2023-06-14 09:32 | WPDHPUPDATE1 ---
History and Physical Update Update Date/Time: 06/14/23 09:32 History and Physical has been reviewed, including an updated exam of the patient. There are NO changes in the patient's condition. Risks, benefits, and alternatives have been discussed and questions answered. Patient agrees to proceed with procedure. Proceed with transurethral resection of bladder tumor
[2023-06-14] MEDS: LACTATED RINGERS 1,000 ML 30 ML IV CONT ×2 (10:15→12:30)
[2023-06-14 10:40] LABS: Glucose Point of Care 122 mg/dl (65-105)
[2023-06-14 10:43] LABS: Appearance Urine Clear (Clear); Bacteria Urine None Seen /hpf; Bilirubin Urine Negative (Negative); Blood Urine Negative (Negative); Color Urine Yellow (Yellow); Glucose Urine UA Negative (Negative); Ketones Urine Trace mg/dL (Negative); Leukocyte Esterase Ur Negative LEU/UL (Negative); Nitrate Urine Negative (Negative); Non Pathogenic Casts 0-2; Protein Urine 1+ mg/dL (Negative); Squamous Epithelial Cell Urine None seen /hpf (Few); Urobilinogen Urine 0.2 mg/dL (<2.0); WBC Urine 0-5 /hpf; pH Urine 5.5 (5.0-9.0)
[2023-06-14 10:48] LABS: Add Urine Microscopic? YES
[2023-06-14 10:50] LABS: INR 1.2
[2023-06-14 10:51] LABS: Partial Thromboplastin Time 41.1 SECONDS (22.3-36.8)
--- NOTE | 2023-06-14 11:17 | WPDANESEPPF ---
Anes - Initial Pre Proc Eval Procedure: Operation Date: 06/14/23 11:45 Proposed Procedures p Trans Urethral Resection Bladder Tumor - Akil Carmona MD s Cystoscopy with Cystogram - Akil Carmona MD Date/Time: 06/14/23 11:17 Surgeon: Akil Carmona MD Pre Op Diagnosis: Bladder Lesion Patient Data Age: 72 Gender: M Height: 1.78 m Weight: 97 kg Last Vital Signs Temp 36.6 C 06/14/23 10:06 Pulse 56 L 06/14/23 10:06 Resp 16 06/14/23 10:06 BP 152/70 H 06/14/23 10:06 Pulse Ox 100 06/14/23 10:06 O2 Del Method Room Air 06/14/23 10:06 Allergies Allergy/AdvReac Type Severity Reaction Status Date / Time dapagliflozin [From Farxiga] AdvReac Intermediate increased Verified 06/14/23 09:58 urination semaglutide [From [facility]] AdvReac Gastrointestinal Verified 06/14/23 09:58 Upset Home Medications Medication Instructions Recorded Confirmed Type amlodipine 5 mg tablet 5 mg PO DAILY 03/03/20 06/10/23 History atorvastatin 40 mg tablet 40 mg PO DAILY 03/03/20 06/10/23 History losartan 100 mg tablet 100 mg PO DAILY 03/03/20 06/10/23 History metoprolol tartrate 25 mg tablet 12.5 mg PO BID 03/03/20 06/10/23 History aspirin 81 mg tablet,delayed 81 mg PO DAILY 03/11/22 06/10/23 History release (Adult Low Dose Aspirin) nitroglycerin 0.4 mg sublingual 0.4 mg sublingual Q5M PRN Chest 03/11/22 06/10/23 History tablet Pain cyclobenzaprine 5 mg tablet 5 mg PO TID PRN muscle spasm #30 07/23/22 06/10/23 Rx tabs tramadol 50 mg tablet 50 mg PO Q6H PRN pain #30 tabs 07/23/22 06/10/23 Rx metformin 500 mg 24 hr 1,000 mg PO BID 90 days #360 tabs 04/19/23 06/10/23 Rx tablet,extended release (gastric retention) allopurinol 100 mg tablet 100 mg PO DAILY 06/05/23 06/10/23 History pantoprazole 40 mg tablet,delayed 40 mg PO DAILY 06/05/23 06/10/23 History release sitagliptin phosphate 100 mg 50 mg PO DAILY 06/05/23 06/10/23 History tablet (Januvia) tamsulosin 0.4 mg capsule 0.4 mg PO DAILY 06/05/23 06/10/23 History ertapenem 1 gram solution for 1 g IV DAILY UTI 06/08/23 06/10/23 Rx injection Laboratory Tests 06/14/23 06/14/23 06/14/23 10:27 10:29 10:34 PT 16.0 H Seconds (11.1-14.7) INR 1.2 APTT 41.1 H SECONDS (22.3-36.8) POC Capillary Glucose 122 H mg/dl (65-105) Urine Color Yellow (Yellow) Urine Appearance Clear (Clear) Urine pH 5.5 (5.0-9.0) Ur Specific [place] 1.020 (1.001-1.035) Urine Protein 1+ H mg/dL (Negative) Urine Glucose (UA) Negative mg/dL (Negative) Urine Ketones Trace H mg/dL (Negative) Ur Blood (Man) Negative (Negative) Urine Nitrate Negative (Negative) Urine Bilirubin Negative (Negative) Urine Urobilinogen 0.2 mg/dL (<2.0) Leukocyte Esterase Rfl Negative JB/UL (Negative) Urine RBC 3-5 H /hpf (0-2) Urine WBC 0-5 /hpf Ur Squamous Epith Cells None seen /hpf (Few) Urine Bacteria None seen /hpf Urine Casts 0-2 Patient hx anesthesia problems: none Family hx anesthesia problems: none Results Review: All pre-operative results and documents have been reviewed as part of the pre-operative evaluation. [facility] Past Medical History Medical History Acute medial meniscus tear of right knee Bladder mass CAD (coronary artery disease) Vfib with cardiac arrest at time of [place], PCI RCA May 2021 Cervical arthritis Chronic kidney disease Chronic pain of right knee Diabetes Elevated liver enzymes Encounter for screening for malignant neoplasm of prostate Hyperlipidemia (~06/05/23) Hypertension Penile anomalies Prostatitis Rotator cuff arthropathy Tear of right rotator cuff Trigger finger, right middle finger Trigger thumb, left thumb T
[2023-06-14] MEDS: ceFAZolin 2 GM/D5W 50 ML 2 GM/50 ML BAG IVPB (11:32)
[2023-06-14] MEDS: LIDOCAINE HCL 2% GEL UROJET 10 ML PKG MUCOUS MEM (11:46)
--- NOTE | 2023-06-14 12:46 | W.PM.PROC2 ---
Procedure Note - Detailed Date of Procedure 06/14/23 Pre-op Diagnosis Bladder Lesion Post-op Diagnosis Same Procedure Performed Cysto, cystogram, transurethral resection of bladder lesion Surgeon Akil Carmona MD Anesthesia General Description of Procedure Patient is taken the operative suite correctly identified. Once anesthesia was obtained was placed in dorsal lithotomy position and prepped draped usual sterile fashion. The urethra was dilated up to 28 Sinhala. Twenty-four Sinhala resectoscope sheath was inserted the bladder. The patient is noted to have this unusual lesion at the dome which has smooth urothelial mucosa. It has the appearance of a small little ball protruding from extrinsically. I went ahead and resected some of this tissue. When I did so it almost appeared that there was is cavity present. I then performed a cystogram which did not reveal any evidence of extravasation or fistulous communication at this time. I got a frozen section on the initial tissue but it was indeterminate from the pathologist perspective. I went ahead and resected some more tissue. It did not have the typical appearance of a papillary carcinoma. Hemostasis was achieved with electrocautery. It was noted that he had some oozing from the prostatic fossa. As such I placed an [address] with CBI. If that clears he will be discharged home with Godfrey catheter for least 24-48 hours prior stool was removal. Will await the final pathology prior to making further recommendations. This completes dictation. Please send a copy this op note to my office. Estimated Blood Loss 10 Drains Yes Packing No Pathology Yes Complications No immediate complications Condition Stable Disposition PACU
[2023-06-14 12:48] LABS: Glucose Point of Care 105 mg/dl (65-105)
[2023-06-14] MEDS: fentaNYL CITRATE INJ (*CRX) 100 MCG/2 ML VIAL 25 MCG IV PUSH ×4 (14:21→15:21)
--- NOTE | 2023-06-14 15:17 | SUR.PHASEI ---
1500: Patient meets PACU discharge criteria, unit bed unavailable at this time. Patient placed in extended recovery status.
[2023-06-14] MEDS: HYOSCYAMINE SULFATE 0.125 MG TABLET PO (15:38)
--- NOTE | 2023-06-14 17:45 | PC.NURSE ---
This patient, Daron Soares, was admitted to Medical Room 345-01. Patient/family oriented to hospital policies and general routines including ID bracelet, bed and alarms, visiting hours, pain management, procedures, bathroom and other care routines, personal items, smoking policy, room service/diet, and visiting hours. Information on how to activate the Rapid Response Team has been discussed. Patient/Family are encouraged to report perceived risks to care and to ask questions if they do not understand what they are told or what they should do.
[2023-06-14] MEDS: METOPROLOL TARTRATE 12.5 MG TABLET PO (17:51)
[2023-06-14] MEDS: metFORMIN HCL XR 500 MG TAB.SR.24H 1000 MG PO (17:51)
[2023-06-14] MEDS: DOCUSATE SODIUM 100 MG CAPSULE PO (17:52)
[2023-06-14] MEDS: ceFAZolin 1 GM/NS 50 ML 1 GM/50 ML BAG IVPB (18:44)
[2023-06-14] MEDS: HYDROcodone/acetaminophen (*CRX) 5-325 MG TABLET 1 TAB PO (21:21)
[2023-06-15] MEDS: ceFAZolin 1 GM/NS 50 ML 1 GM/50 ML BAG IVPB (04:05)
[2023-06-15] MEDS: HYOSCYAMINE SULFATE 0.125 MG TABLET SUBLINGUAL (04:06)
[2023-06-15 04:22] VITALS: BP 142/77; PULSE 56; RESP 18; TEMP 36.6; O2SAT 98
--- NOTE | 2023-06-15 08:02 | WPDUROPN2 ---
Progress Note: A&P Assessment and Plan (1) Bladder mass: Code(s): N32.89 - Other specified disorders of bladder Status: Acute Assessment and Plan: Will CBI. If urine remains clear will discharge home with Godfrey catheter and have it removed tomorrow. He is to call the office for an appointment time. Further recommendations will be made pending his final pathology. If it turns out to be a bladder malignancy then he will need a repeat resection. If it is all inflammatory then he will need to proceed with his GI workup for possible colovesical fistulas this may be more inflammatory from extrinsic causes. Subjective Subjective Date/Time Seen: 06/15/23 08:02 Post Op day: 1 (Transurethral resection bladder tumor) Principal diagnosis: Bladder lesion Interval history: Celestino is doing well overall. His urine is clear with very minimal CBI. Will hold the CBI and if clear will discharge home with Godfrey catheter. Frozen section of this bladder lesion was indeterminate. Awaiting final path. Review of Systems Review of Systems: All systems reviewed & are unremarkable except as noted in HPI and below Exam Const: General: cooperative, comfortable and no acute distress Resp: Effort & Inspection: normal respiratory effort Cardio: Rate: regular rate Rhythm: regular rhythm Urinary Catheter: Urinary Catheter: patent and draining and urine clear Objective Data Vital Signs Vital Signs: Vital Signs - 24 hr 06/14/23 10:06 06/14/23 12:30 06/14/23 12:45 Temperature 36.6 C 36.3 C L Pulse Rate 56 L 70 59 L Respiratory Rate 16 18 13 Blood Pressure 152/70 H 137/83 146/80 H Pulse Oximetry 100 98 100 Oxygen Delivery Room Air Simple Face Mask Simple Face Mask Oxygen Flow Rate 10 10 06/14/23 13:00 06/14/23 13:15 06/14/23 13:30 Temperature Pulse Rate 59 L 62 Respiratory Rate 15 16 17 Blood Pressure 153/75 H 161/83 H 161/77 H Pulse Oximetry 100 96 96 Oxygen Delivery Room Air Room Air Room Air Oxygen Flow Rate 06/14/23 13:45 06/14/23 14:00 06/14/23 14:15 Temperature Pulse Rate 63 65 63 Respiratory Rate 16 15 16 Blood Pressure 162/77 H 171/83 H 158/76 H Pulse Oximetry 96 97 93 Oxygen Delivery Room Air Room Air Room Air Oxygen Flow Rate 06/14/23 14:30 06/14/23 14:45 06/14/23 15:00 Temperature Pulse Rate 65 65 68 Respiratory Rate 14 14 16 Blood Pressure 159/82 H 154/80 H 168/85 H Pulse Oximetry 93 95 95 Oxygen Delivery Room Air Room Air Room Air Oxygen Flow Rate 06/14/23 15:30 06/14/23 16:00 06/14/23 16:30 Temperature Pulse Rate 68 66 74 Respiratory Rate 13 15 19 Blood Pressure 155/80 H 156/87 H 156/81 H Pulse Oximetry 95 97 96 Oxygen Delivery Room Air Room Air Room Air Oxygen Flow Rate 06/14/23 16:56 06/14/23 17:27 06/14/23 17:51 Temperature 36.4 C L 36.7 C Pulse Rate 76 71 71 Respiratory Rate 16 16 Blood Pressure 165/83 H 153/75 H Pulse Oximetry 97 96 Oxygen Delivery Oxygen Flow Rate 06/14/23 20:01 06/15/23 04:22 Temperature 36.6 C 36.6 C Pulse Rate 69 56 L Respiratory Rate 16 18 Blood Pressure 153/73 H 142/77 H Pulse Oximetry 99 98 Oxygen Delivery Oxygen Flow Rate Intake/Output Intake/Output: Intake & Output 06/12/23 06/13/23 06/14/23 06/15/23 23:59 23:59 23:59 23:59 Intake Total 900 250 Output Total 81299 450 Balance -26498 -200 Meds/Results Medications: Active Medications Generic Name Dose Route Start Last Admin Trade Name Freq PRN Reason Stop Dose Admin Hydrocodone Bitart/Acetaminophen 1 tab 06/14/23 16:42 06/14/23 21:21 Hydrocodone/Acetaminophen (*Crx) 5-325 Mg Tablet PO 1 tab Q4H PRN Administration Pain Rated 1-6 Amlodipine Besylate 5 mg 06/15/23 09:00 Amlodipine Besylate 5 Mg Tablet PO DAILY BRYCE Atorvastatin Calcium 40 mg 06/15/23 09:00 Atorvastatin 40 Mg Tablet PO DAILY BRYCE Cephalexin HCl 500 mg 06/15/23 09:00 Cephalexin 500 Mg Capsule PO QID
--- NOTE | 2023-06-15 08:05 | PM.DS ---
DS: Admitting Diagnosis Discharge Date 06/15/2023 Admitting Diagnosis Bladder lesion with hematuria DS: Discharge Diagnosis Discharge Diagnosis (1) Bladder mass: Code(s): N32.89 - Other specified disorders of bladder Status: Acute Assessment and Plan: Discharged home with Godfrey catheter. Godfrey to be removed in a.m. if urine remains clear. Further recommendations pending his final pathology. DS: Summary Hospital Course Hospital Course: Patient underwent a transurethral resection of a bladder lesion. Frozen section was indeterminate. Patient was admitted postoperatively for hematuria and CBI. His urine cleared over the next 24 hours and he is discharged home with Godfrey catheter. Will plan on Godfrey catheter removal in the morning. Patient is instructed to call for path results next week. Time Spent with Patient Time attestation: Total time spent providing and/or coordinating discharge services: DS: Data Data Completed and Pending Pending studies at discharge: Pending at discharge 06/14/23 11:50 Surgical [PTH] Routine 06/14/23 12:22 Surgical [PTH] Routine Labs on day of discharge: Labs from last 24 hours 06/14/23 06/14/23 06/14/23 12:42 10:34 10:29 PT INR APTT POC Capillary Glucose 105 122 H Urine Color Yellow Urine Appearance Clear Urine pH 5.5 Ur Specific [place] 1.020 Urine Protein 1+ H Urine Glucose (UA) Negative Urine Ketones Trace H Ur Blood (Man) Negative Urine Nitrate Negative Urine Bilirubin Negative Urine Urobilinogen 0.2 Leukocyte Esterase Rfl Negative Urine RBC 3-5 H Urine WBC 0-5 Ur Squamous Epith Cells None seen Urine Bacteria None seen Urine Casts 0-2 06/14/23 10:27 PT 16.0 H INR 1.2 APTT 41.1 H POC Capillary Glucose Urine Color Urine Appearance Urine pH Ur Specific [place] Urine Protein Urine Glucose (UA) Urine Ketones Ur Blood (Man) Urine Nitrate Urine Bilirubin Urine Urobilinogen Leukocyte Esterase Rfl Urine RBC Urine WBC Ur Squamous Epith Cells Urine Bacteria Urine Casts Discharge Plan Discharge Patient Disposition: Home, Self-Care Discharge Instructions: Discharged home with Godfrey catheter. Patient can have Godfrey catheter removed on . Call for appointment. Stand Alone Forms: General Discharge Instructions Discharge Medications: Continued aspirin [Adult Low Dose Aspirin] 81 mg tablet,delayed release (DR/EC) 81 mg PO DAILY nitroglycerin 0.4 mg tablet, sublingual 0.4 mg sublingual Q5M PRN (Reason: Chest Pain) Rx Instructions: do not exceed 3 doses per episode tramadol 50 mg tablet 50 mg PO Q6H PRN (Reason: pain) Qty: 30 0RF cyclobenzaprine 5 mg tablet 5 mg PO TID PRN (Reason: muscle spasm) Qty: 30 0RF atorvastatin 40 mg tablet 40 mg PO DAILY amlodipine 5 mg tablet 5 mg PO DAILY losartan 100 mg tablet 100 mg PO DAILY metoprolol tartrate 25 mg tablet 12.5 mg PO BID allopurinol 100 mg tablet 100 mg PO DAILY Rx Instructions: TAKE 1 TABLET BY MOUTH EVERY DAY tamsulosin 0.4 mg capsule 0.4 mg PO DAILY Rx Instructions: TAKE 1 CAPSULE BY MOUTH DAILY AT BEDTIME pantoprazole 40 mg tablet,delayed release (DR/EC) 40 mg PO DAILY Rx Instructions: TAKE 1 TABLET BY MOUTH DAILY Januvia 100 mg tablet 50 mg PO DAILY Rx Instructions: TAKE .5 TABLET BY MOUTH EVERY DAY ertapenem 1 gram recon soln 1 g IV DAILY metformin 500 mg tablet,ER rachael.retention 24 hr 1,000 mg PO BID 90 Days Qty: 360 0RF
[2023-06-15 08:29] VITALS: PULSE 76
[2023-06-15] MEDS: METOPROLOL TARTRATE 12.5 MG TABLET PO (08:29)
[2023-06-15] MEDS: CEPHALEXIN 500 MG CAPSULE PO (08:29)
[2023-06-15] MEDS: metFORMIN HCL XR 500 MG TAB.SR.24H 1000 MG PO (08:29)
[2023-06-15] MEDS: LOSARTAN POTASSIUM 100 MG TABLET PO (08:30)
[2023-06-15 08:35] LABS: Glucose Point of Care 173 mg/dl (65-105)
== END 2023-06-15 11:15 | disposition home or self-care (01) ==
LOC: ANHSURGERY 12:53 → ANH3MED 16:44
PROVIDERS: PCP Family Medicine; Visit Provider Urology
PROC: 0TBB8ZZ Excision of Bladder, Via Natural or Artificial Opening Endoscopic (ICD-10-PCS; CPT 52234; principal; 2023-06-14 11:45)
DX: N30.90 Cystitis, unspecified without hematuria (principal); I25.10 Atherosclerotic heart disease of native coronary artery without angina pectoris; I25.2 Old myocardial infarction; I12.9 Hypertensive chronic kidney disease with stage 1 through stage 4 chronic kidney disease, or unspecified chronic kidney disease; E11.22 Type 2 diabetes mellitus with diabetic chronic kidney disease; N18.9 Chronic kidney disease, unspecified; E78.5 Hyperlipidemia, unspecified; Z95.5 Presence of coronary angioplasty implant and graft; Z87.891 Personal history of nicotine dependence; Z79.82 Long term (current) use of aspirin; Z79.84 Long term (current) use of oral hypoglycemic drugs
CPT/HCPCS: 52234; 36415; 74430; 81001; 82948; 85610; 85730; 88305; 88331; A9270; J0690; J1100; J2250; J2405; J2704; J3010; J7120

== ENCOUNTER 2023-12-05 09:45 | Outpatient (CLI) | payer MEDICARE, SELFPAY ==
[2023-12-05 10:07] LABS: Basophils Percent Auto 0.7 % (0.2-1.2); Eosinophils Absolute Auto 0.1 K/mm3 (0-0.3); Eosinophils Percent Auto 3.2 % (0-4.4); Hematocrit 27.8 % (42.0-52.0); Immature Granulocyte Absolute 0.01 K/mm3 (0.00-0.031); Immature Granulocyte Percent A 0.4 % (0-0.5); Lymphocytes Absolute Auto 0.29 K/mm3 (0.9-3.2); Lymphocytes Percent Auto 10.2 % (18.3-44.2); Mean Corpuscular HGB Conc 28.8 g/dl (32-36); Mean Corpuscular Hemoglobin 23.2 pg (26-34); Mean Corpuscular Volume 80.6 fl (80-100); Mean Platelet Volume 9.2 fl (7.4-10.4); Monocytes Absolute Auto 0.3 K/mm3 (0.1-0.6); Monocytes Percent Auto 10.9 % (2.6-8.5); Neutrophils Absolute Auto 2.1 K/mm3 (1.3-6.7); Neutrophils Percent Auto 74.6 % (45.5-73.1); Platelet Count Result 122 k/mm3 (150-375); Red Blood Count 3.45 M/mm3 (4.6-6.20); Red Cell Distribution Width 17.3 % (11.5-14.5); White Blood Count 2.9 K/mm3 (4.5-10.0)
[2023-12-05 10:43] LABS: Platelet Estimate Decreased (Adequate); Schistocytes None Seen
[2023-12-05 10:44] LABS: Anisocytosis 2+; Hypochromasia 2+; Microcytosis 2+ (NORMAL)
[2023-12-05 12:35] LABS: Iron 89 ug/dL (49-181)
[2023-12-05 12:42] LABS: Alanine Aminotransferase 41 U/L (6-50); Albumin Level 3.9 g/dL (3.5-5.1); Alkaline Phosphatase 407 U/L (38-126); Anion Gap 11 mmol/L (4-12); Aspartate Amino Transferase 67 U/L (17-59); Bilirubin,Total 0.6 mg/dL (0.2-1.3); Blood Urea Nitrogen 21 mg/dL (9-20); Calcium 8.5 mg/dL (8.4-10.2); Carbon Dioxide 22 mmol/L (22-30); Chloride 105 mmol/L (98-107); Estimated Glomerular Filt Rate 42; Glucose 136 mg/dL (65-110); Lactate Dehydrogenase 168 U/L (120-246); Potassium 4.5 mmol/L (3.4-5.0); Sodium 138 mmol/L (137-145)
[2023-12-05 13:02] LABS: Percent Iron Saturation 20 % (20-50)
[2023-12-05 13:48] LABS: Folic Acid 12.7 ng/mL (2.76->20)
[2023-12-08 13:23] LABS: Soluble Transferrin Receptor 3.49 mg/L (0.76-1.76)
[2023-12-09 14:13] LABS: Methylmalonic Acid 226 nmol/L (69-390)
== END 2023-12-05 09:46 | disposition home or self-care (01) ==
LOC: ANHLAB 09:47
PROVIDERS: PCP Nurse Practitioner Family; Visit Provider Internal Medicine Hematology & Oncology
DX: D64.9 Anemia, unspecified (principal)
CPT/HCPCS: 36415; 80053; 82607; 82728; 82746; 83540; 83550; 83615; 83921; 84238; 85025

== ENCOUNTER 2024-06-05 11:58 | Outpatient (CLI) | payer MEDICARE, SELFPAY ==
[2024-06-05 12:17] LABS: Basophils Percent Auto 0.7 % (0.2-1.2); Eosinophils Absolute Auto 0.1 K/mm3 (0-0.3); Hematocrit 36.6 % (42.0-52.0); Hemoglobin 11.4 g/dL (14.0-18.0); Immature Granulocyte Absolute 0.01 K/mm3 (0.00-0.031); Immature Granulocyte Percent A 0.3 % (0-0.5); Lymphocytes Absolute Auto 0.26 K/mm3 (0.9-3.2); Lymphocytes Percent Auto 8.6 % (18.3-44.2); Mean Corpuscular HGB Conc 31.1 g/dl (32-36); Mean Corpuscular Hemoglobin 27.9 pg (26-34); Mean Corpuscular Volume 89.5 fl (80-100); Mean Platelet Volume 9.8 fl (7.4-10.4); Monocytes Absolute Auto 0.3 K/mm3 (0.1-0.6); Neutrophils Absolute Auto 2.3 K/mm3 (1.3-6.7); Neutrophils Percent Auto 76.4 % (45.5-73.1); Platelet Count Result 116 k/mm3 (150-375); Red Blood Count 4.09 M/mm3 (4.6-6.20); Red Cell Distribution Width 16.6 % (11.5-14.5)
[2024-06-05 16:31] LABS: Iron 80 ug/dL (49-181)
[2024-06-05 16:34] LABS: Anion Gap 8 mmol/L (4-12); Blood Urea Nitrogen 24 mg/dL (9-20); Calcium 8.9 mg/dL (8.4-10.2); Carbon Dioxide 26 mmol/L (22-30); Chloride 104 mmol/L (98-107); Estimated Glomerular Filt Rate 36; Glucose 225 mg/dL (65-110); Potassium 4.5 mmol/L (3.4-5.0); Sodium 138 mmol/L (137-145)
[2024-06-05 16:42] LABS: Percent Iron Saturation 27 % (20-50)
[2024-06-06 00:24] LABS: Folic Acid 11.4 ng/mL (2.76->20); Vitamin B12 > 1000.0 pg/mL (239-931)
--- OUTSIDE RECORDS SUMMARY | 2024-06-07 18:08 | XMS_ITS | Clinical Summary ---
Author Organization [facility] Address [address] [place] [address]. [place], [place] [address] [place] [address] Care Team Providers Care Can Striper Name Role Phone Rad Mckeon MD Unavailable Vj Mendez MD Primary Care Provider [phone] Allergies Active Allergy Reactions Criticality Noted Date Comments Semaglutide(0.25 Or 0.5mg-Dos) Unknown 06/15 Medications allopurinol 300 MG tablet allopurinol tablet 300 mg; take 1 tablet by mouth in the morning; 0; -Feb-2013; Active 3 Active pantoprazole 40 MG tablet Take 1 tablet (40 mg total) by mouth daily. 4 Active aspirin 81 MG tablet Take 1 tablet (81 mg total) by mouth daily. 8 Active metFORMIN ER 500 MG 24 hr tablet Take 1 tablet (500 mg total) by mouth 2 (two) times daily. 9 Active OneTouch Delica Lancets 33G Misc daily. 1 Active JANUVIA 100 MG tablet Take 1 tablet (100 mg total) by mouth daily. 3 Active nitroglycerin (NITROSTAT) 0.[address] 1 tablet (0.4 mg total) under the tongue every 5 (five) minutes as needed for Chest Pain. Max 3 tabs, then call 911 25 tablet 1 4 Active CHOLECALCIFEROL 1.25 mg capsule Take 1 capsule (50,000 Units total) by mouth once a week. 4 Active Ferrous Fumarate 325 (106 Fe) MG Tab Take 325 mg by mouth. Active rOPINIRole (REQUIP) 2 MG tablet Take 1 tablet (2 mg total) by mouth. Active vitamin C (ASCORBIC ACID) 250 MG tablet Take 2 tablets (500 mg total) by mouth daily. Active amLODIPine (NORVASC) 5 MG tablet take 1 tablet daily 90 tablet 3 4 Active atorvastatin (LIPITOR) 40 MG tablet TAKE 1 TABLET NIGHTLY AT BEDTIME 90 tablet 4 Active metoprolol tartrate (LOPRESSOR) 25 MG tablet TAKE 1/2 TABLET TWICE A DAY 90 tablet 4 Active losartan (COZAAR) 100 MG tablet take 1 tablet daily 90 tablet 3 4 Active Active Problems Problem Noted Date Diagnosed Date Rotator cuff arthropathy of right shoulder 10/23 Mixed hyperlipidemia Essential hypertension Type 2 diabetes mellitus ([facility]/HCC [facility]/HCC) CAD (coronary artery disease) Family History Medical History Relation Comments Heart Father Prostate Cancer Father Cancer Mother Hypertension Mother Cancer Other Heart Disease Other Relation Status Comments Father Mother Other Social History Tobacco Use Types Packs/Day Years Used Date Smoking Tobacco: Former Cigarettes Q uit: 1989 Smokeless Tobacco: Never Tobacco Cessation:Counseling Given: Not Answered Alcohol Use Standard Drinks/Week Comments Not Currently 0 (1 standard drink = 0.6 oz pur e alcohol) AUDIT-C Answer Date Recorded Q1: How often do you have a drink containing alc ohol? 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 Not on file Not on file Last Filed Vital Signs Vital Sign Reading Time Taken Comments Blood Pressure 122/58 12/08/2023 8:44 AM CDT Pulse 63 12/08/2023 8:44 AM CDT Temperature 36.4 ??C (97.5 ??F) 06/15/2023 7:03 PM CS T Respiratory Rate 18 06/15/2023 7:03 PM TANK CARPENTER Oxygen Saturation 96% 12/08/2023 8:44 AM CDT Inhaled Oxygen Concentration - - Weight 95.3 kg (210 lb) 12/08/2023 8:44 AM CDT Height 177.8 cm (5' 10 ) 12/08/2023 8:44 AM CDT Body Mass Index 30.13 12/08/2023 8:44 AM CDT Plan of Treatment Upcoming Encounters Date Type Department Care Team (Late st Contact Info) Description 12/13/2024 8:45 AM CDT Office Visit [facility] [address] [place] [address] [place] [address] Rad Mckeon MD [facility] [address] [place] [address] Health Maintenance Due Date Last Done Comments Colorectal Cancer Screening Colonoscopy (10 Years) 1950 Kidney Health Evaluation 1950 Pneumococcal Vaccine: 65+ Years (1 of 2 - PCV) 11/10/1955 Diabetes: Retinopathy Eye Exam 11/10/1967 Hepatitis C 11/10/1967 DTaP, Tdap and Td Vaccines (1 - Tdap) 1968 Zoster Vaccines (1 of 2) 11/10/1999 RSV Immunization or 60+ Years (1 - Risk 60-74 years 1-dose series) 2009 Annual Medicare Wellness Visit 2014 COVID-19 Vaccine (3 - season) 2024 07/20/2020, 06/28/2020 Influenza Adult (#1) 2024 05/16/2014 Hemoglobin A1C 03/22/2024 09/20/2023, 10/15, 03/21/2020, Additional history exists Lipid Panel 11/21/2024 11/22/2023, 10/15, 03/21/2020, Additional history exists AAA SCREENING Completed 01/01/2020, 12/14, 05/22/2015, Additional history exists Meningococcal B Vaccine Aged Out No l onger eligible based on patient's age to complete this topic Meningococcal Vaccine Aged Out No jaclyn mitzi eligible based on patient's age to complete this topic RSV Immunizations Under 20 Months Aged Out No longer eligible based on patient's age to complete this topic Medical Devices Implanted Type Area Cutter Grinder Device Identifier Shelf Expiration Date Model / Serial / Lot Iol [place] [employer] Zcb00 - [id number] Implanted:Qty: 1 on 11/10/2020 by Pepe Robin MD at [facility] Lens Right: Eye [employer] [id number] 12/03/2023 ZCB00 / [id number] / Iol [employer] Zcb00 - [id number] Implanted:Qty: 1 on 02/09/2021 by Pepe Robin MD at [facility] Lens Left: Eye [employer] 03/06/2024 ZCB00 / [id number] / Procedures Procedure Name Priority Date/Time Associated Diagnosis Comments LIPID PANEL Routine 11/22/2023 HEMOGLOBIN, GLYCOSYLATED Routine 11/02/2021 CT ABD+PEL WWO CON Routine 01/01/2020 7: 45 AM CDT Urinary tract infection without hematuria, site unspecified from Last 3 Months or Most Recently Relevant to Health Maintenance Results * LIPID PANEL (11/22/2023) CHOLESTEROL 138 TRIGLYCERIDES 137 HDL 37 LDL (CALCULATED) 77 NON HDL CHOLESTEROL 101 us Default History Genericprovider LABORATORY Final Result * HEMOGLOBIN, GLYCOSYLATED (11/02/2021) HGB A1C 9.4 % 11/02/2021 us Doc [facility] LABORATORY Final Result * CT ABD+PEL WWO CON (01/01/2020 7:45 AM CDT) Anatomical Region Laterality Modality Abdomen Computed Tomogra phy 01/01/2020 2:17 PM CDT Impressions 01/01/2020 2:38 PM CDT =====IMPRESSION:===== 1. Findings compatible with a colovesicular fistula; linear soft tissue tract extending from the inferior wall of the sigmoid colon to a focally thickened urinary bladder dome containing a focal pocket of air that appears to be within the wall as opposed to being intravesicular. Likely etiology is prior now resolved episode of diverticulitis with left and sigmoid colonic diverticulosis as discussed above. 2. Probable chronic localized bladder dome inflammation with focal thickening and perivesicular mild stranding without a generalized bladder wall thickening. 3. No finding of a right hepatic lobe 2.1 cm hypoenhancing lesion that may represent a hemangioma but is indeterminate on this study. Follow-up MRI liver with contrast study recommended for possible characterization. 4. Other nonemergent, incidental, stable and potential chronic findings as discussed in the report body above. Narrative 01/01/2020 2:38 PM CDT EXAMINATION: CT ABDOMEN AND PELVIS WITHOUT AND WITH CONTRAST EXAM DATE/TIME: 01/01/2020 7:16 AM REASON FOR EXAM: 69-year-old male with recurrent complicated urinary tract infection. COMPARISON: None TECHNIQUE: Hematuria protocol multiphase CT study performed. Axial noncontrast CT images acquired through the abdomen pelvis followed by postcontrast nephrographic and delayed renal excretory phase following IV administration of 100 mL Isovue-370 contrast. A dose lowering technique was used for this procedure, which may include, but is not limited to, dose reduction technique, automated exposure control, the use of iterative reconstruction, and ALARA (As Low As Reasonably Achievable) / Image Gently techniques. . ?? . FINDINGS: KIDNEYS, URETER AND BLADDER: Symmetric normal size kidneys. There are no radiodense in any system stones or obstruction/hydronephrosis. Bilateral symmetric normal nephrograms without any focal solid or cystic lesion. No concerning perinephric stranding. There is symmetric prompt contrast excretion to both collecting systems without any filling defects. Both ureters opacify normally with contrast without any dilatation or focal lesion. There is focal bladder wall thickening at the bladder dome. There is a pocket of air that appears to be within the thickened portion of the bladder wall, as opposed to being intravesicular, with a contiguous small linear soft tissue tract extending to inferior wall of the adjacent sigmoid colon representing a colovesicular fistula (nephrographic phase coronal image 38/110, series 4 and sagittal image 79/156, series 5). This is probably secondary to a prior now resolved episode of diverticular inflammation/diverticulitis; there is marked left and sigmoid colonic diverticulosis without findings of active acute diverticulitis at this time. The bladder is minimally distended limiting assessment. There is mild primarily anterior prevesicular stranding without generalized bladder wall thickening or perivesicular stranding. Mild prostatomegaly with prostate measuring 5.9 cm. OTHER FINDINGS: Generally clear lung bases. Normal cardiac size. Coronary artery disease. No pericardial or pleural effusion. Incidental finding of a 2.1 cm hypoenhancing right hepatic lobe lesion that may represent a hemangioma but is indeterminate on this study. Remainder the liver is unremarkable. There are cholecystectomy clips. There is no biliary dilatation. The spleen, pancreas and adrenals are normal. Small 1.4 cm duodenal diverticulum identified. As discussed above there is marked left and sigmoid and other scattered colonic diverticulosis without findings of acute/active diverticulitis at this time. Normal appendix. Small bowel is unremarkable. There is no adenopathy, ascites or pneumoperitoneum. Moderate aortoiliac atherosclerotic calcification. No aneurysm. No concerning thoracic musculoskeletal finding Procedure Note Radha Boland MD - 01/01/2020 EXAMINATION: CT ABDOMEN AND PELVIS WITHOUT AND WITH CONTRAST EXAM DATE/TIME: 01/01/2020 7:16 AM REASON FOR EXAM: 69-year-old male with recurrent complicated urinarytract infection. COMPARISON: None TECHNIQUE: Hematuria protocol multiphase CT study performed. Axial noncontrast CT images acquired through the abdomen pelvis followed by postcontrast nephrographic and delayed renal excretory phase followingIV administration of 100 mL Isovue-370 contrast. A dose lowering techniquewas used for this procedure, which may include, but is not limited to, dose reduction technique, automated exposure control, the use of iterative reconstruction, and ALARA (As Low As Reasonably Achievable) / ImageGently techniques. . . FINDINGS: KIDNEYS, URETER AND BLADDER: Symmetric normal size kidneys. There are no radiodense in any systemstones or obstruction/hydronephrosis. Bilateral symmetric normal nephrograms without any focal solid or cystic lesion. No concerning perinephric stranding. There is symmetric prompt contrast excretion to both collecting systems without any filling defects. Both ureters opacify normally with contrast without any dilatation or focal lesion. There is focal bladder wall thickening at the bladder dome. There is a pocket of air that appears to be within the thickened portion of the bladder wall, as opposed to being intravesicular, with a contiguoussmall linear soft tissue tract extending to inferior wall of the adjacentsigmoid colon representing a colovesicular fistula (nephrographic phase coronal image 38/110, series 4 and sagittal image 79/156, series 5). This is probably secondary to a prior now resolved episode of diverticular inflammation/diverticulitis; there is marked left and sigmoid colonic diverticulosis without findings of active acute diverticulitis at this time. The bladder is minimally distended limiting assessment. There is mild primarily anterior prevesicular stranding without generalized bladderwall thickening or perivesicular stranding. Mild prostatomegaly with prostate measuring 5.9 cm. OTHER FINDINGS: Generally clear lung bases. Normal cardiac size. Coronary arterydisease. No pericardial or pleural effusion. Incidental finding of a 2.1 cm hypoenhancing right hepatic lobe lesionthat may represent a hemangioma but is indeterminate on this study. Remainder the liver is unremarkable. There are cholecystectomy clips. There is no biliary dilatation. The spleen, pancreas and adrenals are normal. Small 1.4 cm duodenal diverticulum identified. As discussed above thereis marked left and sigmoid and other scattered colonic diverticulosiswithout findings of acute/active diverticulitis at this time. Normal appendix. Small bowel is unremarkable. There is no adenopathy, ascites or pneumoperitoneum. Moderate aortoiliac atherosclerotic calcification. No aneurysm. No concerning thoracic musculoskeletal finding =====IMPRESSION:===== 1. Findings compatible with a colovesicular fistula; linear soft tissue tract extending from the inferior wall of the sigmoid colon to a focally thickened urinary bladder dome containing a focal pocket of air that appears to be within the wall as opposed to being intravesicular. Likely etiology is prior now resolved episode of diverticulitis with left and sigmoid colonic diverticulosis as discussed above. 2. Probable chronic localized bladder dome inflammation with focal thickening and perivesicular mild stranding without a generalizedbladder wall thickening. 3. No finding of a right hepatic lobe 2.1 cm hypoenhancing lesion thatmay represent a hemangioma but is indeterminate on this study. Follow-up MRI liver with contrast study recommended for possible characterization. 4. Other nonemergent, incidental, stable and potential chronic findingsas discussed in the report body above. Bobbi Britt AP CT Final Result from Last 3 Months or Most Recently Relevant to Health Maintenance Insurance AETNA AETNA Care Teams Can Striper Relationship Specialty Start Date End Date Vj Mendez MD [address] [place] [id number] PCP - General FAMILY PRACTICE 1/31/24 Rad Mckeon MD [id number] [place] [address] Carlotta Sales Process Manager CARDIOVASCULAR DISEASE 10/15/15
--- OUTSIDE RECORDS SUMMARY | 2024-06-07 18:08 | XMS_ITS | Clinical Summary ---
Author Organization [facility] Juli Swift Address [address] [place] [address] Care Team Providers Care Quality Assurance Nurse Name Role Phone Unavailable Primary Care Provider Unavailabl e Allergies Active Allergy Reactions Criticality Noted Date Comments Semaglutide Nausea and Vomiting,Unknown Low 06/15/2023 Heartburn, acid reflux Medications amLODIPine (NORVASC) 5 mg tablet Take 5 mg by mouth daily. Active atorvastatin (LIPITOR) 40 mg tablet Take 40 mg by mouth daily. Active aspirin (ECOTRIN EC) 81 mg Tablet, Delayed Release (E.C.) Take 81 mg by mouth daily. Active SITagliptin phosphate (JANUVIA) 50 mg Tablet Take 50 mg by mouth daily with breakfast. Active losartan (COZAAR) 100 mg tablet Take 100 mg by mouth daily. Active metFORMIN (GLUCOPHAGE) 500 mg tablet Take 500 mg by mouth 2 times daily with meals. Active metoprolol succinate (TOPROL XL) 25 mg Extended Release 24 hour tablet Take 25 mg by mouth daily. Active nitroglycerin (NITRO-TIME ORAL) Take 4 mg by mouth. Active pantoprazole (PROTONIX) 40 mg Tablet, Delayed Release (E.C.) Take 40 mg by mouth daily. Active rOPINIRole (REQUIP) 2 mg Tablet Take 2 mg by mouth. Active CALCIUM CITRATE-VITAMIN D3 ORAL Take by mouth. Active ferrous fumarate (FERRETTS) 325 mg (106 mg iron) Tablet Take 325 mg by mouth. Active allopurinoL (ZYLOPRIM) 100 mg tablet Take 100 mg by mouth daily. Active Active Problems Problem Noted Date Diagnosed Date Coronary atherosclerosis 12/05/2023 Essential hypertension 12/05/2023 Mixed hyperlipidemia 12/05/2023 Type 2 diabetes mellitus 12/05/2023 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 Diverticulitis 08/09/2023 Rotator cuff arthropathy of right shoulder 10/23 Leukocytosis 05/22/2015 Night sweats 05/21/2015 Common bile duct calculus 05/14/2015 Encounters Date Type Department Care Team Description 06/07/2024 Orders Only [facility] - [place] [address] [place] [address] Sanchez Wolf MD 06/06/2024 Orders Only [facility] - [place] [address] [place] [address] Sanchez Wolf MD from Last 3 Months Family History Medical History Relation Name Comments No Known Problems Brother 1 Hodgkin's lymphoma Brother 2 No Known Problems Child 1 No Known Problems Child 2 No Known Problems Child 3 Heart Disease Father Cancer Mother Breast Cancer Sister 1 Esophageal Cancer Sister 1 No Known Problems Sister 2 Relation Name Status Comments Brother 1 Alive Brother 2 Child 1 Alive Child 2 Alive Child 3 Alive Father Mother Sister 1 Alive Sister 2 Alive Social History Tobacco Use Types Packs/Day Years Used Date Smoking Tobacco: Former Cigarettes 1 20 Q uit: 12/04/1988 Smokeless Tobacco: Never Tobacco Cessation:Counseling Given: Not Answered Alcohol Use Standard Drinks/Week Comments Not Currently 0 (1 standard drink = 0.6 oz pur e alcohol) SOCIALLY Sex and Gender Information Value Date Recorded Sex Assigned at Not on file Legal Sex Male 2:54 PM CDT Gender Identity Not on file Sexual Orientation Not on file Last Filed Vital Signs Vital Sign Reading Time Taken Comments Blood Pressure 189/83 02/14/2024 2:17 PM CDT Pulse 71 02/14/2024 2:14 PM CDT Temperature 36.7 ??C (98 ??F) 02/14/2024 2:14 PM CDT Respiratory Rate 16 02/14/2024 2:14 PM CDT Oxygen Saturation 98% 02/14/2024 2:14 PM CDT Inhaled Oxygen Concentration - - Weight 94.8 kg (209 lb) 02/14/2024 2:14 PM CDT Height 177.8 cm (5' 10 ) 12/05/2023 9:00 AM CDT Body Mass Index 29.99 12/05/2023 9:00 AM CDT Plan of Treatment Upcoming Encounters Date Type Department Care Team (Late st Contact Info) Description 06/12/2024 2:30 PM DOCUMENTATION COORDINATOR Office Visit [facility] - [place] [address] [facility] [address] [place] [address] Sanchez Wolf MD [address] [place] [address] Health Maintenance Due Date Last Done Comments DIABETES ANNUAL FOOT EXAM 11/10/1967 DIABETES ANNUAL RETINAL EXAM 11/10/1967 DIABETES MICROALBUMIN ANNUAL SCREEN 11/10/1967 LDL CHOLESTEROL ANNUAL 11/10/1967 DTAP/TDAP/TD VACCINES (1 - Tdap) 1968 PNEUMOCOCCAL VACCINE 65+ YEA RS (1 of 2 - PCV) 1968 FIT-DNA Q 3 years 1994 FIT/FOBT Q 1 year 1994 Flex Sig/CT Colonography Q 5 years 1994 ZOSTER VACCINE (1 of 2) 11/10/1999 RSV VACCINE (60+ or ) (1 - Risk 60-74 years 1-dose series) 2009 INFLUENZA VACCINE (#1) 2023 05/16/2014 DIABETES HBA1C Q 6 MONTHS 03/22/2024 09/20/2023, COLORECTAL SCREENING 09/25/2033 09/26/2023, 09/26/19 24 Colorectal Cancer Screening 09/25/2033 Abdominal Aortic Aneurysm (AAA) Screening Completed 05/05/2015 Procedures Procedure Name Priority Date/Time Associated Diagnosis Comments BASIC METABOLIC PANEL Routine 06/05/2024 4:21 PM DOCUMENTATION COORDINATOR IRON LEVEL Routine 06/05/2024 3:55 PM DOCUMENTATION COORDINATOR from Last 3 Months Results * BASIC METABOLIC PANEL (06/05/2024 4:21 PM DOCUMENTATION COORDINATOR) Blood us Sanchez Wolf MD CHEMISTRY ORDERABLES Final Resu lt * IRON LEVEL (06/05/2024 3:55 PM DOCUMENTATION COORDINATOR) Blood us Sanchez Wolf MD CHEMISTRY ORDERABLES Final Resu lt from Last 3 Months Insurance [id number]
--- OUTSIDE RECORDS SUMMARY | 2024-06-07 18:08 | XMS_ITS | Encounter Summary ---
Author Organization [facility] Address [address] [place] [address]. [place] [address] [place] [address] Care Team Providers Care Community Service Officer Name Role Phone Calixto Almanza MD Primary Care Provider [phone] Rad Mckeon MD Unavailable Vj Mendez MD Primary Care Provider [phone] Encounter Details Date Type Department Care Team (Late st Contact Info) Description 11/07/2020 Abstract [facility] [id number] Mari Medina MA Social History Tobacco Use Types Packs/Day Years Used Date Smoking Tobacco: Former Cigarettes Q uit: 1989 Smokeless Tobacco: Never Alcohol Use Standard Drinks/Week Comments Not Currently [...] file Not on file Not on file COVID-19 Exposure Response Date Recorded In the last month, have you been in contact with someone who was confirmed or suspected to have Coronavirus / COVID-19? No / Unsure 11/10/2020 6:31 AM CDT documented as of this encounter Plan of Treatment Upcoming Encounters Date Type Department Care Team (Late st Contact Info) Description 12/13/2024 8:45 AM CDT Office Visit [facility] [address] [email or web address] [address] Rad Mckeon MD [facility]. [facility] [address] [place] [address] documented as of this encounter Procedures Procedure Name Priority Date/Time Associated Diagnosis Comments LIPID PANEL Routine 11/22/2023 CBC (OUTSIDE LAB) Routine 11/02/2021 PROSTATE SPECIFIC ANTIGEN,TOTAL Routine 11/02/2021 COMPREHENSIVE METABOLIC PANEL Routine 11/02/2021 LIPID PANEL Routine 11/02/2021 HEMOGLOBIN, GLYCOSYLATED Routine 11/02/2021 CBC (OUTSIDE LAB) Routine 03/21/2020 COMPREHENSIVE METABOLIC PANEL Routine 03/21/2020 LIPID PANEL Routine 03/21/2020 HEMOGLOBIN, GLYCOSYLATED Routine 03/21/2020 THYROID STIM HORMONE TSH Routine 03/21/2020 documented in this encounter Results * LIPID PANEL (11/22/2023) CHOLESTEROL 138 TRIGLYCERIDES 137 HDL 37 LDL (CALCULATED) 77 NON HDL CHOLESTEROL 101 us Default History Genericprovider LABORATORY Final Result * PROSTATE SPECIFIC ANTIGEN,TOTAL (11/02/2021) PSA 2.24 11/02/2021 us Doc [facility] Final Result * CBC (OUTSIDE LAB) (11/02/2021) WBC 5.2 HGB 13.4 HCT 42.4 PLT 181 11/02/2021 Doc [facility] Abstract LAB-OUTSIDE/ABSTRACTED Final Result * HEMOGLOBIN, GLYCOSYLATED (11/02/2021) Pathologist [facility] HGB A1C 9.4 % 11/02/2021 us Doc [facility] Final Result * (ABNORMAL) COMPREHENSIVE METABOLIC PANEL (11/02/2021) Pathologist [facility] SODIUM S/P/B 138 POTASSIUM S/P/B 4.7 CO2 27 CHLORIDE S/P/B 102 GLUCOSE 139 mg/dL CALCIUM S/P/B 9.3 BUN 18 CREATININE S/P/B 1.67(A) 0.7 - 1.3 EGFR AFR. AMER. 47 <=90 EGFR NON-AFR. AMER. 41 <=90 ALKALINE PHOSPHATASE S/P/B 215 ALT 54 AST 51 BILIRUBIN TOTAL S/P/B 1.1 ALBUMIN S/P/B 4.0 3.5 - 5.0 TOTAL PROTEIN S/P/B 7.6 GLOBULIN 3.6 11/02/2021 [facility] Final Result * LIPID PANEL (11/02/2021) Pathologist [facility] CHOLESTEROL 132 HDL 29 TRIGLYCERIDES 231 NON HDL CHOLESTEROL 103 LDL (CALCULATED) 71 11/02/2021 Doc [facility] Final Result * CBC (OUTSIDE LAB) (03/21/2020) Pathologist [facility] WBC 5.7 HGB 14.0 HCT 41.5 PLT 197 03/21/2020 us Doc [facility] LAB-OUTSIDE/ABSTRACTED Final Result * THYROID STIM HORMONE, TSH (03/21/2020) Pathologist [facility] TSH 0.96 03/21/2020 us Doc [facility] Final Result * HEMOGLOBIN, GLYCOSYLATED (03/21/2020) [facility] HGB A1C 7.4 % 03/21/2020 us Doc [facility] Final Result * (ABNORMAL) COMPREHENSIVE METABOLIC PANEL (03/21/2020) [facility] SODIUM S/P/B 140 POTASSIUM S/P/B 4.7 CO2 28 CHLORIDE S/P/B 104 GLUCOSE 128 mg/dL CALCIUM S/P/B 9.5 BUN 25 CREATININE S/P/B 1.67(A) 0.7 - 1.3 EGFR AFR. AMER. 47 <=90 EGFR NON-AFR. AMER. 41 <=90 ALKALINE PHOSPHATASE S/P/B 127 ALT 43 AST 39 BILIRUBIN TOTAL S/P/B 0.7 ALBUMIN S/P/B 4.1 3.5 - 5.0 TOTAL PROTEIN S/P/B 7.1 GLOBULIN 3.0 03/21/2020 us Doc [facility] Final Result * LIPID PANEL (03/21/2020) Pathologist [facility] CHOLESTEROL 129 HDL 33 TRIGLYCERIDES 155 NON HDL CHOLESTEROL 96 LDL (CALCULATED) 73 03/21/2020 us Doc [facility] Final Result documented in this encounter Visit Diagnoses Not on filedocumented in this encounter Care Teams Community Service Officer Relationship Specialty Start Date End Date Calixto Almnaza MD PCP - General INTERNAL MEDICINE 10/15/15 06/14/23 Vj Mendez MD [facility] [place] [address] PCP - General FAMILY PRACTICE 06/15/23 Rad Mckeon MD [facility]. [facility] [address] [place] [address] [place] App[employer] Specialist CARDIOVASCULAR DISEASE 10/15/15 documented as of this encounter
--- OUTSIDE RECORDS SUMMARY | 2024-06-07 18:08 | XMS_ITS | Encounter Summary ---
Author Organization [facility] Address [address] [place] [address]. [place], [place] [id number] [place] [id number] Care Team Providers Care Signalling And Communications Engineer Name Role Phone Calixto Almanza MD Primary Care Provider [phone] Rad Mckeon MD Unavailable Vj Mendez MD Primary Care Provider [phone] Encounter Details Date Type Department Care Team (Late st Contact Info) Description 10/18/2016 [facility] [address] [address] Mari Medina MA Social History Tobacco Use Types Packs/Day Years Used Date Smoking Tobacco: Former Cigarettes Q uit: 1989 Alcohol Use Standard Drinks/Week Comments Yes 0 (1 standard drink = 0.6 oz pur e alcohol) History of alcohol Sex and Gender Information Value Date Recorded Sex Assigned at Not on file Legal Sex Male 2:27 AM CDT Gender Identity Not on file Sexual Orientation Not on file 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 Not on file Not on file documented as of this encounter Plan of Treatment Upcoming Encounters Date Type Department Care Team (Late st Contact Info) Description 12/13/2024 8:45 AM CDT Office Visit [facility] [address] Rad Mckeon MD [facility] [address] [place], [place] [id number] documented as of this encounter Procedures Procedure Name Priority Date/Time Associated Diagnosis Comments LIPID PANEL Routine 09/22/2017 HEMOGLOBIN, GLYCOSYLATED Routine 09/22/2017 PSA SCREEN (OUTSIDE LAB) Routine 06/19/2016 CBC (OUTSIDE LAB) Routine 06/19/2016 COMPREHENSIVE METABOLIC PANEL Routine 06/19/2016 LIPID PANEL Routine 06/19/2016 HEMOGLOBIN, GLYCOSYLATED Routine 06/19/2016 documented in this encounter Results * HEMOGLOBIN, GLYCOSYLATED (09/22/2017) HGB A1C 9.1 09/22/2017 us Doc [facility] Final Result * LIPID PANEL (09/22/2017) CHOLESTEROL 121 HDL 31 TRIGLYCERIDES 134 LDL (CALCULATED) 63.2 09/22/2017 us Doc [facility] Final Result * PSA SCREEN (OUTSIDE LAB) (06/19/2016) PSA 2.2 06/19/2016 us Doc [facility] LAB-OUTSIDE/ABSTRACTED Final Result * CBC (OUTSIDE LAB) (06/19/2016) WBC 5.0 HGB 14.7 HCT 43.3 PLT 203 06/19/2016 us Doc [facility] LAB-OUTSIDE/ABSTRACTED Final Result * HEMOGLOBIN, GLYCOSYLATED (06/19/2016) HGB A1C 9.7 06/19/2016 us Doc [facility] Final Result * COMPREHENSIVE METABOLIC PANEL (06/19/2016) SODIUM S/P/B 141 POTASSIUM S/P/B 4.6 CO2 28 CHLORIDE S/P/B 103 GLUCOSE 151 CALCIUM S/P/B 9.5 BUN 15 CREATININE S/P/B 1.20 0.7 - 1.3 EGFR AFR. AMER. 73 EGFR NON-AFR. AMER. 63 ALKALINE PHOSPHATASE S/P/B 141 ALT 44 AST 38 BILIRUBIN TOTAL S/P/B 0.7 ALBUMIN S/P/B 4.2 3.5 - 5.0 TOTAL PROTEIN S/P/B 7.1 GLOBULIN 2.9 06/19/2016 us Doc [facility] Final Result * LIPID PANEL (06/19/2016) CHOLESTEROL 138 HDL 28 TRIGLYCERIDES 168 NON HDL CHOLESTEROL 110 LDL (CALCULATED) 76 06/19/2016 us Doc [facility] Final Result documented in this encounter Visit Diagnoses Not on filedocumented in this encounter Care Teams Signalling And Communications Engineer Relationship Specialty Start Date End Date Calixto Almanza MD PCP - General INTERNAL MEDICINE 10/15/15 06/14/23 Vj Mendez MD [address] [place] [address] PCP - General FAMILY PRACTICE 06/15/23 Rad Mckeon MD [facility] [address] [place] [address] [employer] Staking Engineer CARDIOVASCULAR DISEASE 10/15/15 documented as of this encounter
--- OUTSIDE RECORDS SUMMARY | 2024-06-07 18:08 | XMS_ITS | Clinical Summary ---
Author Organization [facility] Address [address] [place] [address] Care Team Providers Care Car Detailer Name Role Phone Vj Mendez MD Primary Care Provider [phone] Shade Alvarez MD Unavailable [phone] Allergies Active Allergy Reactions Criticality Noted Date Comments Semaglutide Stomach upset Low 06/15/2023 Heartburn, acid reflux Medications atorvastatin (LIPITOR) 40 mg tabletIndication s:hyperlipidemia Take 1 tablet (40 mg total) by mouth nightly 3 Active amLODIPine (NORVASC) 5 mg tabletIndication s:hypertension Take 1 tablet (5 mg total) by mouth nightly 3 Active losartan (COZAAR) 100 mg tabletIndication s:hypertension Take 1 tablet (100 mg total) by mouth braille teacher before breakfast 3 Active metFORMIN XR (GLUCOPHAGE XR) 500 mg 24 hr tabletIndication s:type 2 diabetes mellitus Take 1 tablet (500 mg total) by mouth 2 (two) times a day 9 Active nitroglycerin (NITROSTAT) 0.4 mg SL tabletIndication s:acute episode of anginal pain,never used Place 1 tablet (0.4 mg total) under the tongue every 5 (five) minutes as needed for chest pain [address] (PROTONIX) 40 mg EC tabletIndication s:Treatment of Non-Bleeding Gastric Disorder Take 1 tablet (40 mg total) by mouth braille teacher before breakfast Active metoprolol tartrate (LOPRESSOR) 25 mg immediate release tabletIndication s:hypertension Take 0.5 tablets (12.5 mg total) by mouth 2 (two) times a day 4 Active allopurinoL (ZYLOPRIM) 100 mg tabletIndication s:prevention of acute gout attack Take 1 tablet (100 mg total) by mouth nightly Active nitrofurantoin monohydrate (MACROBID) 100 mg capsuleIndicatio ns:Prophylaxis, Medical,UTI prevention Take 1 capsule (100 mg total) by mouth braille teacher before breakfast 4 Active Januvia 50 mg tabletIndication s:type 2 diabetes mellitus Take 1 tablet (50 mg total) by mouth braille teacher before breakfast 4 Active gabapentin (NEURONTIN) 300 mg capsuleIndicatio ns:Pain Take 1 capsule (300 mg total) by mouth every 12 (twelve) hours 60 capsule 4 Active acetaminophen 500 mg capsuleIndicatio ns:Pain Take 2 capsules (1,000 mg total) by mouth every 6 (six) hours 30 tablet 1 4 Active oxyCODONE (ROXICODONE) 5 mg immediate release tabletIndication s:Pain Take 1 tablet (5 mg total) by mouth every 6 (six) hours as needed for pain 15 tablet 4 Active aspirin 81 MG oral suspension 4 Active cholecalciferol (VITAMIN D-3) 50,000 unit capsule Take 1 capsule (50,000 Units total) by mouth once a week 4 Active ferrous sulfate 325 mg (65 mg of elemental iron) tablet Active rOPINIRole (REQUIP) 2 mg tablet Active Active Problems Problem Noted Date Diagnosed Date Diverticulitis 08/09/2023 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 Leukocytosis 05/22/2015 Night sweats 05/21/2015 Common bile duct calculus 05/14/2015 Immunizations Name Administration Dates Next Due Influenza, Trivalent, Preservative Free, Intramu scular 05/16/2014 Surgical History Surgery Date Site/Laterality Comments CHOLECYSTECTOMY 05/16/2014 - 05/15/2015 COLONOSCOPY 05/16/2019 - 05/15/2020 ROTATOR CUFF REPAIR 05/16/2017 - 05/15/2018 BLADDER TUMOR EXCISION 05/16/2023 - 05/15/2024 benign COLECTOMY 10/06/2023 Laparoscopic sigmoid colectomy and takedown of colovesical fistula, splenic flexure mobilization Medical History Medical History Date Comments Personal history of other di seases of the circulatory system History of cardiac disorder - (Added by TW Conv) Hypertension Myocardial infarction (HCC) Diabetes mellitus (HCC) Gout Awareness under anesthesia aware ness during colonoscopy Family History Medical History Relation Name Comments Cancer Brother No Known Problems Father Cancer Mother Cancer Other Cancer - mother - stomach (Added by TW Conv) Cancer Sister Anesthesia problems Neg Hx Relation Name Status Comments Brother Father Mother Other Sister Social History Tobacco Use Types Packs/Day Years Used Date Smoking Tobacco: Former Cigarettes 1.8 25 S tarted: 1965 Smokeless Tobacco: Never Tobacco Cessation:Counseling Given: Not Answered AUDIT-C Answer Date Recorded Q1: How often do you have a drink containing alcohol? Never 11/28/2023 Q2: How many drinks containi ng alcohol do you have on a typical day when you are drinking? Patient does not drink Q3: How often do you have si x or more drinks on one occasion? Never 11/28/2023 Personal Safety Answer Date Recorded Have you ever been in or are you currently in a harmful physical or emotional relationship or is someone making you feel afraid or unsafe? Denies 10/06/2023 Sex and Gender Information Value Date Recorded Sex Assigned at Not on file Legal Sex Male 7:27 AM LIFE GUARD Gender Identity Not on file Sexual Orientation Not on file Obstetrics History Last Filed Vital Signs Vital Sign Reading Time Taken Comments Blood Pressure 130/63 11/28/2023 1:42 PM CDT Pulse 64 11/28/2023 1:42 PM CDT Temperature 36.7 ??C (98.1 ??F) 10/14/2023 12:07 PM C DT Respiratory Rate 17 10/09/2023 4:19 AM CDT Oxygen Saturation 99% 11/28/2023 1:42 PM CDT Inhaled Oxygen Concentration - - Weight 93.4 kg (206 lb) 11/28/2023 1:42 PM CDT Height 177.8 cm (5' 10 ) 11/28/2023 1:42 PM CDT Body Mass Index 29.56 11/28/2023 1:42 PM CDT Plan of Treatment Health Maintenance Due Date Last Done Comments Albumin Creatinine Ratio, Urine 1950 Depression Screening 1950 Dilated Eye Exam 1950 Foot Exam 1950 Pneumococcal vaccine 65+ (1 of 2 - PCV) 11/10/1955 DTaP/Tdap/Td Vaccine (1 - Tdap) 1960 Hepatitis B Screening 11/10/1967 Zoster Vaccine (1 of 2) 11/10/1999 Well Visit 65+ 2014 Covid-19 Vaccine (5 - 2023-2 5 season) 2024 04/25/2022, 05/05/2021, 07/20/2020, Additional history exists Influenza Vaccine (#1) 2024 , 02/25/2022, 05/16/2014 Hemoglobin A1C 03/22/2024 09/20/2023 Fall Risk Assessment 10/08/2024 10/09/2023 eGFR 10/20/2024 10/21/2023, 09/14, 10/07/2023, Additional history exists Lipid Panel 11/21/2024 11/22/2023, 10/15, 05/06/2015 Colon Cancer Screening-Colonoscopy 09/25/20332023 Hepatitis C Screening Completed 05/05/2015 Abdominal Aortic Aneurysm (A AA) Screen Completed 01/01/2020, 05/22/2015, 05/05/2015 Medical Devices Implanted Type Area Water Softener Servicer And Installer Device Identifier Shelf Expiration Date Model / Serial / Lot Stent Implanted:Qty: 1 Stent N/A: Heart Description:02/06/3014 - [facility], [place] - stent Procedures Procedure Name Priority Date/Time Associated Diagnosis Comments EGFR Routine 10/21/2023 9:30 AM CDT Dizziness COLONOSCOPY 09/26/2023 11:10 AM CDT HEMOGLOBIN A1C Routine 09/20/2023 10:37 AM CDT Preoperative testing Type 2 diabetes mellitus without complication, unspecified whether press tender long goods insulin use (HCC) CT ABDOMEN PELVIS W CONTRAST Routine 05/22/2015 11:51 AM LIFE GUARD SERUM LIPID PANEL Routine 05/06/2015 2:3 8 AM LIFE GUARD SERUM HEPATITIS PANEL Routine 05/05/2015 11:04 PM LIFE GUARD from Last 3 Months or Most Recently Relevant to Health Maintenance Results * (ABNORMAL) eGFR (10/21/2023 9:30 AM CDT) Pathologist [facility] eGFR 43(L) >=60 mL/min/1. 73 m2 Comment: Interpretive Data Reference Interval Normal ?>/= 90 mL/min/1.73m2 Mildly decreased* ? 60 - 89 mL/min/1.73m2 Mildly to moderately decreased ?45 - 59 mL/min/1.73m2 Moderately to severely decreased ??30 - 44 mL/min/1.73m2 Severely decreased ?15 - 29 mL/min/1.73m2 Kidney Failure ?< 15 ??mL/min/1.73m2 *Relative to young adult level Estimated glomerular filtration rate is determined by the 2020 CKD-EPI equation recommended by the National Kidney Foundation (A Unifying Approach to GFR Estimation: Recommendations of the NKF-ASK Task Force on Reassessing the Inclusion of Race in Diagnosing Kidney Disease, JASN 2020). The CKD-EPI equation should not be used for patients with unstable renal function and has not been validated in children and those over 70. Current interpretive data was last reviewed 2021. Blood 10/21/2023 9:30 AM CDT 10/21/2023 9:42 AM CDT us Valarie KENNY LAB BLOOD ORDERABLES Final Result [facility] [id number] Department [place] [address] * Colonoscopy (09/26/2023 11:10 AM CDT) Anatomical Region Laterality Modality Other Narrative Procedure Note Shade Alvarez MD - 09/26/2023 11:10 AM CDT [facility] Patient Name: Daron Soares Procedure Date: 09/26/2023 11:10 AM Date of : 1950 Admit Type: Outpatient Age: 72 Gender: Male Attending MD: Shade Alvarez M.D. Room: [facility] ENDOSCOPY ROOM 02 Note Status: Finalized Procedure: Colonoscopy Indications: Preoperative assessment, Diverticulitis Referring MD: Providers: Shade Alvarez M.D. Medicines: Propofol per Anesthesia Complications: No immediate complications. Estimated Blood Loss: Estimated blood loss: none. Procedure: Pre-Anesthesia Assessment: - After reviewing the risks and benefits, thepatient was deemed in satisfactory condition to undergo the procedure. - Immediately prior to administration ofmedications, the patient was re-assessed for adequacy to receive sedatives. The benefits, risks and alternatives of theprocedure and sedation were discussed and informed consentwas obtained. All questions were answered. Please referto the signed informed consent document in the medical record. The scope was passed under direct vision.The [id number] Endoscsope was introduced through the anus and advanced to the the cecum, identifiedby appendiceal orifice and ileocecal valve. The colonoscopy was performed without difficulty. The patient tolerated the procedure well. The qualityof the bowel preparation was good. The bowelpreparation used was SUPREP. Findings: The perianal and digital rectal examinations were normal. A 2 mm polyp was found in the ileocecal valve. The polyp was sessile. The polyp was removed with a hot biopsy forceps. Resection andretrieval were complete. An 18 mm polyp was found in the ascending colon. The polyp was semi-pedunculated. The polyp was removed with a piecemeal technique using a hot snare. Polyp resection was incomplete. The resectedtissue was retrieved. Fulguration to ablate the lesion remnants by argonbeam at 0.5 liters/minute and 20 barber was successful. Multiple diverticula were found in the entire colon. The exam was otherwise without abnormality. Impression: - One 2 mm polyp at the ileocecal valve, removedwith a hot biopsy forceps. Resected and retrieved. - One 18 mm polyp in the ascending colon, removed piecemeal using a hot snare. Incomplete resection. Resected tissue retrieved. Treated with argon beam coagulation. - Diverticulosis in the entire examined colon. - The examination was otherwise normal. Recommendation: - Await pathology results. - Repeat colonoscopy in 3 years for surveillance. - Surgery next week as scheduled. Electronically signed by Yunier Alvarez Shade Alvarez M.D. 09/26/2023 12:19:03 PM Number of Addenda: 0 Note Initiated On: 09/26/2023 11:10 AM Recognized by the [employer] for promoting quality in endoscopy us Shade Alvarez MD ENDOSCOPY PROCEDURES Final Res ult * (ABNORMAL) Hemoglobin A1c (09/20/2023 10:37 AM CDT) Hgb A1C 6.8(H) 4.0 - 5.6 % Estimated Average Glucose 148 mg/dL [facility] Comment: The ADA recommends reporting an estimated Average Glucose (eAG) with all Hemoglobin A1c results using the equation derived from a study of 507 normal and diabetic adults. ??Minority populations were underrepresented and children were not included. ?? (Diabetes Care 2020; 43(S1): S66-S76). ??The eAG is not equivalent to a fasting glucose. Blood 09/20/2023 10:3 7 AM CDT 09/20/2023 11:21 AM CDT Sahil Mehta NP LAB BLOOD ORDERABLES Final Result [facility] Department [place] [address] * CT Abdomen Pelvis W Contrast (05/22/2015 11:51 AM LIFE GUARD) Anatomical Region Laterality Modality Body N/A Computed Tomogra phy 05/22/2015 11:5 1 AM LIFE GUARD Narrative 05/22/2015 12:26 PM LIFE GUARD DANIELA DUMONT M.D. FINAL REPORT ACC# ??Date Time ??Exam [id number] May 22, 2015 11:51:[id number] Abd & Pelvis with cont EXAMINATION: ?? CT of the abdomen pelvis with contrast dated 05/22/2015. HISTORY: 2 weeks out from lap cholecystectomy now with night sweats and elevated liver enzymes. TECHNIQUE: CT of the abdomen and pelvis was performed following 93 mL of Optiray-350 per standard protocol. FINDINGS: No prior studies are available for comparison. Limited evaluation of the lung bases demonstrates no consolidation or effusion. There is extensive coronary atherosclerosis. There is no pericardial effusion. Surgical clips are noted within the gallbladder fossa. There is a small fluid collection measuring 5.5 x 3.2 cm with some associated adjacent stranding. There is some soft tissue stranding and edema extending towards the duodenal bulb. There is no biliary duct dilation. The hepatic artery and portal vein branches enhance normally with no evidence of injury. There is inflammation and stranding associated with the sigmoid colon with associated dilated, inflamed diverticula. No extracolonic free air or abscess is identified. There is no significant free fluid. The area diverticulitis abuts the bladder dome and tethers it slightly. There is no intraluminal gas within the bladder. Bone windows demonstrate no lytic or blastic lesions. IMPRESSION: ?? 1. Acute diverticulitis of the sigmoid colon. Inflammatory process abuts the superior wall of the bladder with no direct evidence of fistulization. No abscess or obstruction. The above findings were discussed with Dr. Weston by Dr. Dumont at approximately 12:30 on 05/22/2015. Requested By: [facility] Dictated By: ?? DANIELA DUMONT M.D. ??on May 12:26P This document has been electronically signed by: DANIELA DUMONT M.D. on May 12:26P [id number] Procedure Note Provider, MD Otilia - 09/16/2016 DANIELA DUMONT M.D. FINAL REPORT ACC# Date Time Exam [id number] May 22, 2015 11:51:[id number] Abd & Pelvis with cont EXAMINATION: CT of the abdomen pelvis with contrast dated 05/22/2015. HISTORY: 2 weeks out from lap cholecystectomy now with night sweats and elevated liver enzymes. TECHNIQUE: CT of the abdomen and pelvis was performed following 93 mL of Optiray-350 per standard protocol. FINDINGS: No prior studies are available for comparison. Limited evaluation of the lung bases demonstrates no consolidation or effusion. There is extensive coronary atherosclerosis. There is no pericardial effusion. Surgical clips are noted within the gallbladder fossa. There is a small fluid collection measuring 5.5 x 3.2 cm with some associated adjacent stranding. There is some soft tissue stranding and edema extending towards the duodenal bulb. There is no biliary duct dilation. The hepatic artery and portal vein branches enhance normally with no evidence of injury. There is inflammation and stranding associated with the sigmoid colon with associated dilated, inflamed diverticula. No extracolonic free air or abscess is identified. There is no significant free fluid. The area diverticulitis abuts the bladder dome and tethers it slightly. There is no intraluminal gas within the bladder. Bone windows demonstrate no lytic or blastic lesions. IMPRESSION: 1. Acute diverticulitis of the sigmoid colon. Inflammatory process abuts the superior wall of the bladder with no direct evidence of fistulization. No abscess or obstruction. The above findings were discussed with Dr. Weston by Dr. Dumont at approximately 12:30 on 05/22/2015. Requested By: [facility] Dictated By: DANIELA DUMONT M.D. on May 22 2015 12:26P This document has been electronically signed by: DANIELA DUMONT M.D. on May 22 2015 12:26P [id number] us Historical Provider MD LENTZ CT PROCEDURES Final R esult * (ABNORMAL) Serum lipid panel (05/06/2015 2:38 AM LIFE GUARD) Cholesterol 113 0 - 200 mg/dl HISTORICAL RESULTS Comment: Interpretive Data Desirable: ?<200 mg/dL Borderline high: ??200-239 mg/dL High: ? >240 mg/dL Literature Reference: National Cholesterol Education Program (NCEP) Expert Panel on Detection, Evaluation, and Treatment of High Blood Cholesterol in Adults (Adult Treatment Panel III). ??Circulation 2004; 110:227. Current interpretive data was last revised on 2005. Triglycerides 160(H) 0 - 150 mg/dl HISTORICAL RESULTS Comment: Interpretive Data Desirable: ? < 150 mg/dL Borderline High: ? 150 - 199 mg/dL High: ?> 200 mg/dL Literature Reference: See Cholesterol Current interpretive data was last revised on 06. HDL 7(L) 40 - 199 mg/dl HISTORICAL RESULTS Comment: Interpretive Data Less than 40 mg/dL - low; A major risk factor for heart disease. Greater than or equal to 60 mg/dL - High; ??considered protective of heart disease. Literature Reference: See Cholesterol Current interpretive data was last revised on 2008. LDL 74 0 - 129 mg/dl HISTORICAL RESULTS Comment: Interpretive Data Optimal: ? < 100 mg/dL Near Optimal: ?100 - 129 mg/dL Borderline High: ?? 130 - 159 mg/dL High: ?> 160 mg/dL Literature Reference: See Cholesterol Current interpretive data was last revised on 06. Non-HDL cholesterol, calculated 106 mg/dl HISTORICAL RESULTS Comment: Interpretive Data When triglycerides are >200 mg/dL, non-HDL C is a secondary target of therapy, with a goal 30 mg/dL higher than the identified LDL-C goal. Reference: ??See Cholesterol Reference. Current interpretive data was last revised 2011. Serum 05/06/2015 2:38 AM LIFE GUARD Eloisa Dempsey MD LAB BLOOD ORDERABLES F inal Result Performing Organization Address City/State/[facility] Co de Phone Number HISTORICAL RESULTS * Serum Hepatitis panel (05/05/2015 11:04 PM LIFE GUARD) HCV ab Negative NEG HISTORICAL RESULTS Comment: Interpretive Data If confirmation is required, call Laboratory Customer Service to request sample to be sent to [facility] for Hepatitis C Virus (HCV) RNA Detection and Quantitation by Real-Time Reverse Protection Engineer-PCR (RT-PCR). Current interpretive data was last revised on 2011 HBV core ab, IgM Negative NEG HIS TORICAL RESULTS Comment: Interpretive Data If test is reported as Equivocal, new sample should be drawn for testing. Current interpretive data was last revised on 2007. HBV surface ag Negative NEG HISTO RICAL RESULTS HAV ab, IgM Negative NEG HISTORIC AL RESULTS Comment: Interpretive Data If test is reported as Equivocal, new sample should be drawn in two weeks for testing. Current interpretive data was last revised on 2007. Serum 05/05/2015 11:0 4 PM LIFE GUARD Marc Oconnor LAB BLOOD ORDERABLES Final Result HISTORICAL RESULTS from Last 3 Months or Most Recently Relevant to Health Maintenance Insurance [employer] MEDICARE GOLD AETNA MEDICARE GOLD Advance Directives For more information, please contact: [phone] Documents on File Type Date Recorded Patient Circus Artist Expl anation ADVANCE DIRECTIVE 10/06/2023 7:33 AM * Full Code (Latest Code Status on File) Date Activated Date Inactivated Comments 10/06/2023 2:37 PM 10/09/2023 5:21 PM * Full Code Date Activated Date Inactivated Comments 09/26/2023 11:26 AM 09/26/2023 5:16 PM Care Teams Car Detailer Relationship Specialty Start Date End Date Vj Mendez MD [address] [place] [id number] PCP - General Family Medicine 07/07/23 Shade Alvarez MD [phone] [place] [address] Surgeon Colon and Rectal Surgery 08/09/23
--- OUTSIDE RECORDS SUMMARY | 2024-06-07 18:08 | XMS_ITS | Referral Summary ---
Author Organization [facility] Address [address] [place] [address] Care Team Providers Care Plaster Whittler Name Role Phone Vj Mendez MD Primary Care Provider [phone] Shade Alvarez MD Unavailable Allergies Active Allergy Reactions Criticality Noted Date [...] 1 tablet (100 mg total) by mouth running instructor before breakfast 3 Active metFORMIN XR (GLUCOPHAGE [...] 1 tablet (40 mg total) by mouth running instructor before breakfast Active metoprolol tartrate (LOPRESSOR) 25 [...] 1 capsule (100 mg total) by mouth running instructor before breakfast 4 Active Januvia 50 mg tabletIndication s:type 2 diabetes mellitus Take 1 tablet (50 mg total) by mouth running instructor before breakfast 4 Active gabapentin (NEURONTIN) 300 [...] Influenza, Trivalent, Preservative Free, Intramu scular 05/16/2014 Social History Tobacco Use Types Packs/Day Years [...] on file Legal Sex Male 7:27 AM ACCOUNT CONTACT ASSOCIATE Gender Identity Not on file Sexual Orientation [...] 11/28/2023 1:42 PM CDT Plan of Treatment Not on file Medical Devices Implanted 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 Shelf Expiration Date Model / Serial / Lot Stent Implanted:Qty: 1 Stent N/A: Heart Description:02/06/3014 - [facility], [facility] stent Procedures Procedure Name Priority Date/Time Associated Diagnosis Comments EGFR Routine 10/21/2023 9:30 AM CDT Dizziness COLONOSCOPY 09/26/2023 11:10 AM CDT HEMOGLOBIN A1C Routine 09/20/2023 10:37 AM CDT Preoperative testing Type 2 diabetes mellitus without complication, unspecified whether [facility] insulin use (HCC) CT ABDOMEN PELVIS W CONTRAST Routine 05/22/2015 11:51 AM ACCOUNT CONTACT ASSOCIATE SERUM LIPID PANEL Routine 05/06/2015 2:3 8 AM ACCOUNT CONTACT ASSOCIATE SERUM HEPATITIS PANEL Routine 05/05/2015 11:04 PM ACCOUNT CONTACT ASSOCIATE from Last 3 Months or Most Recently Relevant to Health Maintenance Results * (ABNORMAL) eGFR (10/21/2023 9:30 AM CDT) eGFR 43(L) >=60 mL/min/1. 73 m2 Comment: [...] LAB BLOOD ORDERABLES Final Result [facility] [address] Department [place] [address] * Colonoscopy (09/26/2023 11:10 AM CDT) Anatomical Region Laterality Modality Other Narrative Procedure Note Shade Alvarez MD - 09/26/2023 11:10 AM CDT [facility] Patient Name: Daron Soares Procedure Date: 09/26/2023 11:10 AM Date of : 1950 Admit Type: Outpatient Age: 72 Gender: Male Attending MD: Shade Alvarez M.D. Room: [facility] ENDOSCOPY ROOM 02 Note Status: Finalized Procedure: [...] The scope was passed under direct vision.The [id number] Endoscsope was introduced through the anus and [...] On: 09/26/2023 11:10 AM Recognized by the [employer] for promoting quality [...] Mehta NP LAB BLOOD ORDERABLES Final Result [facility] Department [place] [address] * CT Abdomen Pelvis W Contrast (05/22/2015 11:51 AM ACCOUNT CONTACT ASSOCIATE) Anatomical Region Laterality Modality Body N/A Computed Tomogra phy 05/22/2015 11:5 1 AM ACCOUNT CONTACT ASSOCIATE Narrative 05/22/2015 12:26 PM ACCOUNT CONTACT ASSOCIATE DANIELA DUMONT M.D. FINAL REPORT ACC# ??Date Time ??Exam [id number] May 22, 2015 11:51:[address] Abd & Pelvis with cont EXAMINATION: [...] 12:30 on 05/22/2015. Requested By: [facility] Dictated By: ?? DANIELA DUMONT M.D. ??on May 12:26P This document has been electronically signed by: DANIELA DUMONT M.D. on May 12:26P [id number] Procedure Note Provider, MD Otilia - 09/16/2016 DANIELA DUMONT M.D. FINAL REPORT ACC# Date Time Exam [id number] May 22, 2015 11:51:[address] Abd & Pelvis with cont EXAMINATION: [...] 12:30 on 05/22/2015. Requested By: [facility] Dictated By: DANIELA DUMONT M.D. on May 22 2015 12:26P This document has been electronically signed by: DANIELA DUMONT M.D. on May 22 2015 12:26P [id number] us Historical Provider MD LENTZ CT PROCEDURES Final R esult * (ABNORMAL) Serum lipid panel (05/06/2015 2:38 AM ACCOUNT CONTACT ASSOCIATE) Cholesterol 113 0 - 200 mg/dl HISTORICAL [...] last revised 2011. Serum 05/06/2015 2:38 AM ACCOUNT CONTACT ASSOCIATE Eloisa Dempsey MD LAB BLOOD ORDERABLES F inal Result Performing Organization Address [facility] de Phone Number HISTORICAL RESULTS * Serum Hepatitis panel (05/05/2015 11:04 PM ACCOUNT CONTACT ASSOCIATE) HCV ab Negative NEG HISTORICAL RESULTS Comment: Interpretive Data If confirmation is required, call Laboratory Customer Service to request sample to be sent to [facility] for Hepatitis C Virus (HCV) RNA Detection and Quantitation by Real-Time Reverse Flooring Grader-PCR (RT-PCR). Current interpretive data was last revised [...] on 2007. 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
== END 2024-06-05 11:59 | disposition home or self-care (01) ==
PROVIDERS: PCP Nurse Practitioner Family; Visit Provider Internal Medicine Hematology & Oncology
DX: D64.9 Anemia, unspecified (principal)
CPT/HCPCS: 36415; 80048; 82607; 82728; 82746; 83540; 83550; 85025